=== PATIENT | female | born 1955 | race Caucasian/White ===

== ENCOUNTER 2016-08-05 18:41 | Observation (INO) | payer BC ==
--- NOTE | 2016-08-05 18:53 | ED ---
General Adult HPI - General Chief complaint: Chest Pain Stated complaint: NUMBNESS LEFT ARM, CHEST TIGHTNESS, INDIGESTION Time Seen by Provider: 08/05/16 18:48 Source: patient, RN notes reviewed, old records reviewed Mode of arrival: wheelchair Limitations: no limitations - History of Present Illness Initial comments: This is a 7-year-old female the ER for evaluation of chest pain. Left-sided chest pain with tingling and numbness down left arm. Patient has history of high cholesterol and diabetes, remote history of smoking no high cholesterol no prior history of heart disease. No shortness of breath no diaphoresis no cough or congestion, no recent travel history no sick contacts. No modifying factors for symptoms, symptoms about an hour prior to arrival - Related Data Home Medications Medication Instructions Recorded Confirmed Naproxen Sodium [Aleve] 220 mg PO BID 09/30/14 08/05/16 Omeprazole [PriLOSEC] 20 mg PO BID 09/30/14 08/05/16 Oxybutynin Chloride 5 mg PO TID 09/30/14 08/05/16 Simvastatin [Zocor] 40 mg PO HS 09/30/14 08/05/16 glyBURIDE [Diabeta] 5 mg PO AC-SUPPER 09/30/14 08/05/16 Aspirin EC [Ecotrin Low Dose] 81 mg PO DAILY 08/05/16 08/05/16 Lisinopril [Zestril] 2.5 mg PO DAILY 08/05/16 08/05/16 Allergies Allergy/AdvReac Type Severity Reaction Status Date / Time codeine AdvReac Nausea & Verified 08/05/16 19:32 Vomiting Review of Systems ROS Statement: Those systems with pertinent positive or pertinent negative responses have been documented in the HPI. ROS Other: All systems not noted in ROS Statement are negative. Past Medical History Past Medical History: Diabetes Mellitus, Hyperlipidemia, Osteoarthritis (OA), Sleep Apnea/CPAP/BIPAP Additional Past Medical History / Comment(s): urinary urgency, menieres disease History of Any Multi-Drug Resistant Organisms: None Reported Past Surgical History: Cholecystectomy, Hernia Repair, Orthopedic Surgery, Tubal Ligation Additional Past Surgical History / Comment(s): hiatal hernia repair, rt shoulder rotator cuff, left foot surgery, angel luis knee arthroscopy Past Anesthesia/Blood Transfusion Reactions: Previous Problems w/ Anesthesia, Motion Sickness Additional Past Anesthesia/Blood Transfusion Reaction / Comment(s): "hard time coming out" Past Psychological History: No Psychological Hx Reported Smoking Status: Former smoker Past Alcohol Use History: None Reported Past Drug Use History: None Reported - Past Family History Mother Family Medical History: No Reported History General Exam Limitations: no limitations General appearance: alert, in no apparent distress Head exam: Present: atraumatic, normocephalic, normal inspection Eye exam: Present: normal appearance, PERRL, EOMI. Absent: scleral icterus, conjunctival injection, periorbital swelling ENT exam: Present: normal exam, mucous membranes moist Neck exam: Present: normal inspection. Absent: tenderness, meningismus, lymphadenopathy Respiratory exam: Present: normal lung sounds bilaterally. Absent: respiratory distress, wheezes, rales, rhonchi, stridor Cardiovascular Exam: Present: regular rate, normal rhythm, normal heart sounds. Absent: systolic murmur, diastolic murmur, rubs, gallop, clicks GI/Abdominal exam: Present: soft, normal bowel sounds. Absent: distended, tenderness, guarding, rebound, rigid Extremities exam: Present: normal inspection, full ROM, normal capillary refill. Absent: tenderness, pedal edema, joint swelling, calf tenderness Back exam: Present: normal inspection Neurological exam: Present: alert, oriented X3, CN II-XII intact Psychiatric exam: Present: normal affect, normal mood Skin exam: Present: warm, dry, intact, normal color. Absent: rash Course Vital Signs 08/05/16 08/05/16 18:43 20:00 Temperature 98.3 F Pulse Rate 76 66 Respiratory 18 18 Rate Blood Pressure 149/67 138/69 O2 Sat by Pulse 97 98 Oximetry - Reevaluation(s) Reevaluation #1: 08/05/16 20:43 Patient still with chest pain although it is improved EKG Findings - EKG Comments: EKG Findings:: EKG shows normal sinus rhythm rate 73, ID 132, QRS 70, QTc 460 Medical Decision Making - Medical Decision Making 61 female the ER for evaluation of chest pain, positive cardiac risk factors. No recent cardiac evaluation. Initial EKG just for negative, patient will be admitted to cardiac observation, serial troponin - Lab Data Result diagrams: 08/05/16 19:15 08/05/16 19:15 Lab Results 02/17/17 02/17/17 02/17/17 Range/Units 19:15 19:15 19:15 WBC 8.3 (3.8-10.6) k/uL RBC 4.29 (3.80-5.40) m/uL Hgb 13.5 (11.4-16.0) gm/dL Hct 39.7 (34.0-46.0) % MCV 92.6 (80.0-100.0) fL MCH 31.5 (25.0-35.0) pg MCHC 34.1 (31.0-37.0) g/dL RDW 12.5 (11.5-15.5) % Plt Count 287 (150-450) k/uL Neutrophils % 55 % Lymphocytes % 29 % Monocytes % 6 % Eosinophils % 6 % Basophils % 1 % Neutrophils # 4.6 (1.3-7.7) k/uL Lymphocytes # 2.4 (1.0-4.8) k/uL Monocytes # 0.5 (0-1.0) k/uL Eosinophils # 0.5 (0-0.7) k/uL Basophils # 0.1 (0-0.2) k/uL PT (9.0-12.0) sec INR (<1.1) APTT (22.0-30.0) sec Sodium 142 (137-145) mmol/L Potassium 3.9 (3.5-5.1) mmol/L Chloride 103 (98-107) mmol/L Carbon Dioxide 29 (22-30) mmol/L Anion Gap 10 mmol/L BUN 16 (7-17) mg/dL Creatinine 0.65 (0.52-1.04) mg/dL Est GFR (MDRD) Af Amer >60 (>60 ml/min/1.73 sqM) Est GFR (MDRD) Non-Af >60 (>60 ml/min/1.73 sqM) Glucose 146 H (74-99) mg/dL Calcium 9.3 (8.4-10.2) mg/dL Magnesium 1.9 (1.6-2.3) mg/dL Total Bilirubin 0.6 (0.2-1.3) mg/dL AST 20 (14-36) U/L ALT 33 (9-52) U/L Alkaline Phosphatase 100 (38-126) U/L Total Creatine Kinase 82 (30-135) U/L CK-MB (CK-2) 1.1 (0.0-2.4) ng/mL CK-MB (CK-2) Rel Index 1.3 Troponin I <0.012 (0.000-0.034) ng/mL Total Protein 6.9 (6.3-8.2) g/dL Albumin 3.6 (3.5-5.0) g/dL Lipase 44 (23-300) U/L 08/05/16 Range/Units 19:15 WBC (3.8-10.6) k/uL RBC (3.80-5.40) m/uL Hgb (11.4-16.0) gm/dL Hct (34.0-46.0) % MCV (80.0-100.0) fL MCH (25.0-35.0) pg MCHC (31.0-37.0) g/dL RDW (11.5-15.5) % Plt Count (150-450) k/uL Neutrophils % % Lymphocytes % % Monocytes % % Eosinophils % % Basophils % % Neutrophils # (1.3-7.7) k/uL Lymphocytes # (1.0-4.8) k/uL Monocytes # (0-1.0) k/uL Eosinophils # (0-0.7) k/uL Basophils # (0-0.2) k/uL PT 10.1 (9.0-12.0) sec INR 1.0 (<1.1) APTT 22.6 (22.0-30.0) sec Sodium (137-145) mmol/L Potassium (3.5-5.1) mmol/L Chloride (98-107) mmol/L Carbon Dioxide (22-30) mmol/L Anion Gap mmol/L BUN (7-17) mg/dL Creatinine (0.52-1.04) mg/dL Est GFR (MDRD) Af Amer (>60 ml/min/1.73 sqM) Est GFR (MDRD) Non-Af (>60 ml/min/1.73 sqM) Glucose (74-99) mg/dL Calcium (8.4-10.2) mg/dL Magnesium (1.6-2.3) mg/dL Total Bilirubin (0.2-1.3) mg/dL AST (14-36) U/L ALT (9-52) U/L Alkaline Phosphatase (38-126) U/L Total Creatine Kinase (30-135) U/L CK-MB (CK-2) (0.0-2.4) ng/mL CK-MB (CK-2) Rel Index Troponin I (0.000-0.034) ng/mL Total Protein (6.3-8.2) g/dL Albumin (3.5-5.0) g/dL Lipase (23-300) U/L - Radiology Data Radiology results: report reviewed (Chest x-ray negative for acute disease), image reviewed Critical Care Time Critical Care Time: Yes Total Critical Care Time: 31 Disposition Clinical Impression: Chest pain Disposition: ADMITTED IP TO THIS [facility] Condition: Good Instructions: Chest Pain (ED) Referrals: Young Vu DO [Primary Care Provider] - 1-2 days
[2016-08-05 19:24] LABS: Basophils # (A) 0.1 k/uL (0-0.2); Basophils % (A) 1 %; CH 31.8; CHCM 34.5; Eosinophils # (A) 0.5 k/uL (0-0.7); Eosinophils % (A) 6 %; HCT 39.7 % (34.0-46.0); HDW 2.55; HGB 13.5 gm/dL (11.4-16.0); Luc # (Auto) 0.29; Luc % (Auto) 4; Lymphocytes # (A) 2.4 k/uL (1.0-4.8); Lymphocytes % (A) 29 %; MCH 31.5 pg (25.0-35.0); MCHC 34.1 g/dL (31.0-37.0); MCV 92.6 fL (80.0-100.0); Mean Platelet Volume 7.8; Monocytes # (A) 0.5 k/uL (0-1.0); Monocytes % (A) 6 %; Neutrophils # (A) 4.6 k/uL (1.3-7.7); Neutrophils % (A) 55 %; RBC 4.29 m/uL (3.80-5.40); RDW 12.5 % (11.5-15.5); WBC 8.3 k/uL (3.8-10.6); WBC (Perox) 8.23
--- NOTE | 2016-08-05 19:32 | XR ---
EXAMINATION TYPE: XR chest 2V DATE OF EXAM: 08/05/2016 7:25 PM COMPARISON: NONE HISTORY: Chest pain TECHNIQUE: Frontal and lateral views of the chest are obtained. FINDINGS: There is no heart failure nor confluent pneumonic infiltrate. Costophrenic angles are clovis r. There are no hilar masses. There are chest leads. Mediastinum is normal. Bony thorax is intact. IMPRESSION: No active cardiopulmonary disease.
[2016-08-05 19:40] LABS: Partial Thromboplastin Time 22.6 sec (22.0-30.0); Prothrombin Time 10.1 sec (9.0-12.0)
[2016-08-05 19:44] LABS: Creatine Kinase 82 U/L (30-135)
[2016-08-05 19:57] LABS: Creatine Kinase MB 1.1 ng/mL (0.0-2.4); Troponin I <0.012 ng/mL (0.000-0.034)
[2016-08-05 20:27] LABS: ALT 33 U/L (9-52); AST 20 U/L (14-36); Alkaline Phosphatase 100 U/L (38-126); Anion Gap 10 mmol/L; Blood Urea Nitrogen 16 mg/dL (7-17); Calcium 9.3 mg/dL (8.4-10.2); Carbon Dioxide 29 mmol/L (22-30); Chloride 103 mmol/L (98-107); Glucose 146 mg/dL (74-99); Magnesium 1.9 mg/dL (1.6-2.3); Non-African American GFR(MDRD) >60 (>60 ml/min/1.73 sqM); Potassium 3.9 mmol/L (3.5-5.1); Sodium 142 mmol/L (137-145); Total Bilirubin 0.6 mg/dL (0.2-1.3); Total Protein 6.9 g/dL (6.3-8.2)
[2016-08-05] MEDS ORDERED: NITROGLYCERIN SL TABS 0.4 MG TAB SUBLINGUAL PRN (20:39)
[2016-08-05] MEDS ORDERED: MORPHINE SULFATE 4 MG/ML SYRINGE IV PRN (20:39)
[2016-08-05] MEDS ORDERED: HEPARIN SODIUM,PORCINE 5,000 UNIT/ML 1 ML VIAL IV ONE (20:39)
[2016-08-05] MEDS ORDERED: ASPIRIN 81 MG CHEW PO STA (20:39)
[2016-08-05] MEDS ORDERED: HEPARIN SODIUM,PORCINE/D5W PMX 25,000 UNIT in DEXTROSE/WATER 1 500ML.BAG IV SCH (20:45)
[2016-08-05 22:15] VITALS: BMI 37.9
[2016-08-05] MEDS ORDERED: HYDROcodone/APAP 5-325MG 1 EACH TAB PO PRN (23:19)
[2016-08-05] MEDS ORDERED: ATORVASTATIN 20 MG TAB PO SCH (23:30)
[2016-08-05] MEDS: LISINOPRIL 2.5 MG TAB PO SCH (23:44)
[2016-08-05] MEDS: OXYBUTYNIN CHLORIDE 5 MG TAB PO SCH (23:44)
[2016-08-05] MEDS: glipiZIDE 5 MG TAB PO SCH (23:44)
[2016-08-05] MEDS: PANTOPRAZOLE 40 MG TABLET PO SCH (23:44)
[2016-08-06 02:38] LABS: Mean Platelet Volume 7.2
[2016-08-06 02:58] LABS: Creatine Kinase 66 U/L (30-135)
[2016-08-06 02:59] LABS: Cholesterol 154 mg/dL (<200); HDL Cholesterol 51 mg/dL (40-60); Triglycerides 157 mg/dL (<150)
[2016-08-06 03:11] LABS: Creatine Kinase MB 0.7 ng/mL (0.0-2.4); Troponin I <0.012 ng/mL (0.000-0.034)
[2016-08-06 06:52] LABS: Glucose,Whole Blood 100 mg/dL (75-99)
[2016-08-06 07:52] LABS: Creatine Kinase 105 U/L (30-135)
[2016-08-06 08:05] LABS: Creatine Kinase MB 0.8 ng/mL (0.0-2.4); Troponin I <0.012 ng/mL (0.000-0.034)
[2016-08-06] MEDS ORDERED: ASPIRIN 325 MG TAB PO SCH (09:00)
[2016-08-06] MEDS ORDERED: ATORVASTATIN 80 MG TAB PO STA (09:15)
[2016-08-06] MEDS ORDERED: ASPIRIN 325 MG TAB PO STA (09:15)
[2016-08-06] MEDS ORDERED: ALPRAZolam 0.5 MG TAB PO PRN (09:15)
[2016-08-06] MEDS ORDERED: SODIUM CHLORIDE 0.9% 1,000 ML in EMPTY BAG 1 BAG IV ONE (09:15)
[2016-08-06] MEDS ORDERED: NITROGLYCERIN SL TABS 0.4 MG TAB SUBLINGUAL PRN (09:15)
[2016-08-06] MEDS ORDERED: ALPRAZolam 0.25 MG TAB PO PRN (09:15)
--- NOTE | 2016-08-06 09:24 | CONS ---
DATE OF CONSULTATION: This is a 61-year-old lady with a known history of type 2 diabetes mellitus, hypercholesterolemia and obesity, and past history of smoking more than 20 years ago. She presented to the emergency room with complaints of heaviness and pressure in the chest with radiation to left upper extremity and some tingling sensation. The discomfort lasted more than 20 minutes and occurred at rest after she had a meal. However, she felt concerned and came into the hospital. Troponins are normal. EKG revealed sinus rhythm, sinus bradycardia and minor nonspecific ST-T changes with T wave abnormality, which is also nonspecific. She had another episode of discomfort while she was here as well, but she is comfortable now. I will increase her activity and see how she does. If she has any pressure in the chest with activity, I will perform a coronary angiography. She has had a stress test more than 5 years ago, details unavailable. At the time of my evaluation, she is resting in the bed. PAST MEDICAL HISTORY: Type 2 diabetes, hyperlipidemia, osteoarthritis, sleep apnea syndrome uses a CPAP. She is status post cholecystectomy, hernia repair and arthroscopic surgery of her knees and tubal ligation. Medications at home include naproxen, omeprazole, simvastatin, glyburide, aspirin, lisinopril 2.5 mg daily. ALLERGIES: CODEINE. REVIEW OF SYSTEMS: Unremarkable for any hematemesis or melena, genitourinary symptoms, fever with chills, or cough with expectoration. On examination, blood pressure is 118/70, pulse rate is 62 per minute, regular. HEENT: Unremarkable. Fundus was not examined by me. Neck is supple. No JVD. I do not hear a carotid bruit. Heart exam reveals S1 and S2 heard normally, but distantly. Lungs are clear. Abdomen is soft, nontender. Lower extremities reveal normal pulses. No edema. Central nervous system is normal. EKG revealed sinus mechanism, nonspecific T wave abnormality. Laboratory data revealed unremarkable troponins. IMPRESSION: 1. Chest pain syndrome, cannot exclude angina symptoms of chest pressure in a patient with significant risk factors. 2. Type 2 diabetes mellitus. 3. Hypercholesterolemia. 4. Obesity. 5. Sleep apnea syndrome, wears a CPAP. RECOMMENDATIONS: I am recommending that we increase activity and see how she does. If she has any chest pressure or heaviness, I would recommend cardiac catheterization. Risks, benefits, options and rationale were discussed at length with the patient. She understands all details and wishes to proceed with the procedure.
[2016-08-06] MEDS: OXYBUTYNIN CHLORIDE 5 MG TAB PO SCH ×3 (10:14→20:26)
[2016-08-06] MEDS: PANTOPRAZOLE 40 MG TABLET PO SCH ×2 (10:26→20:25)
[2016-08-06 11:02] LABS: Hemoglobin A1C 6.7 % (4.2-6.1)
[2016-08-06 12:03] LABS: Glucose,Whole Blood 102 mg/dL (75-99)
[2016-08-06] MEDS ORDERED: SODIUM CHLORIDE 0.9% (PF) 10 ML VIAL ONE (12:49)
[2016-08-06] MEDS ORDERED: VERAPAMIL 2.5 MG/ML 2 ML AMP ONE (12:49)
[2016-08-06] MEDS ORDERED: diphenhydrAMINE 50 MG/ML 1 ML VIAL ONE (12:50)
[2016-08-06] MEDS ORDERED: LIDOCAINE 2% INJ 20 MG/ML (20 ML MDV) ONE (12:50)
[2016-08-06] MEDS ORDERED: HEPARIN SODIUM 1,000 UNIT/ML VIAL ONE (12:50)
[2016-08-06] MEDS ORDERED: MIDAZOLAM 2 MG/2 ML VIAL ONE (12:50)
[2016-08-06] MEDS ORDERED: MIDAZOLAM 2 MG/2 ML VIAL IV ONE ×2 (13:04)
[2016-08-06] MEDS ORDERED: diphenhydrAMINE 50 MG/ML 1 ML VIAL IVP ONE (13:04)
[2016-08-06] MEDS ORDERED: LIDOCAINE 2% INJ 20 MG/ML SQ ONE (13:06)
[2016-08-06] MEDS: VERAPAMIL SYRINGE (5 MG/10 ML) INTRAARTER ONE ×2 (13:09→13:33)
[2016-08-06] MEDS ORDERED: fentaNYL (PF) 50 MCG/ML 2 ML AMP ONE (13:11)
[2016-08-06] MEDS ORDERED: fentaNYL (PF) 50 MCG/ML 2 ML AMP IV ONE (13:11)
[2016-08-06] MEDS ORDERED: IOHEXOL 350 MG/ML 100 ML BOTTLE INTRATHECA ONE (13:33)
[2016-08-06] MEDS ORDERED: IV FLUID CONTINUATION 900 ML IV ONE (13:34)
[2016-08-06] MEDS ORDERED: RX INFO: IV CONTRAST WAS GIVEN 1 EACH MISC MISCELLANE PRN (13:51)
[2016-08-06] MEDS ORDERED: SODIUM CHLORIDE 0.9% 1,000 ML IV SCH (14:00)
--- NOTE | 2016-08-06 14:55 | ECHOF ---
Referral Reason:CP MEASUREMENTS -------- HEIGHT: 165.1 cm WEIGHT: 106.1 kg BP: RVIDd: 2.6 cm (< 3.3) IVSd: 1.3 cm (0.6 - 1.1) LVIDd: 4.6 cm (3.9 - 5.3) LVPWd: 1.1 cm (0.6 - 1.1) IVSs: 1.4 cm LVIDs: 4.4 cm LVPWs: 1.2 cm LA Diam: 4.1 cm (2.7 - 3.8) Ao Diam: 2.6 cm (2.0 - 3.7) AV Cusp: 2.0 cm (1.5 - 2.6) LA Diam: 4.6 cm (2.7 - 3.8) MV EXCURSION: 19.436 mm (> 18.000) MV EF SLOPE: 102 mm/s (70 - 150) EPSS: 0.9 cm MV E Tree: 0.64 m/s MV DecT: 236 ms MV A Tree: 0.78 m/s MV E/A Ratio: 0.82 RAP: 5.00 mmHg RVSP: 33.58 mmHg FINDINGS -------- Sinus rhythm. This was a technically adequate study. There is mild concentric left ventricular hypertrophy. Overall left ventricular systolic function is normal with, an EF between 55 - 60 %. The right ventricle is normal in size. The right atrial size is normal. There is mild aortic valve sclerosis. There is no evidence of aortic regurgitation. Mild mitral annular calcification present. Mild mitral regurgitation is present. Mild tricuspid regurgitation present. There is no evidence of pulmonary hypertension. The right ventricular systolic pressure, as measured by Doppler, is 33.58mmHg. There is no pulmonic regurgitation present. The aortic root size is normal. There is no pericardial effusion. CONCLUSIONS -------- 1. There is mild concentric left ventricular hypertrophy. 2. Overall left ventricular systolic function is normal with, an EF between 55 - 60 %. 3. There is mild aortic valve sclerosis. 4. Mild mitral annular calcification present. 5. Mild mitral regurgitation is present. 6. Mild tricuspid regurgitation present. 7. There is no evidence of pulmonary hypertension. 8. The right ventricular systolic pressure, as measured by Doppler, is 33.58mmHg. POULTRY CLEANER: Luz Edward RDCS
[2016-08-06 17:26] LABS: Glucose,Whole Blood 182 mg/dL (75-99)
[2016-08-06] MEDS: glipiZIDE 5 MG TAB PO SCH (17:34)
--- NOTE | 2016-08-06 18:57 | HP ---
CHIEF COMPLAINT: Chest pain. HISTORY OF PRESENT ILLNESS: Ms. Husain is a 61-year-old female with known history of diabetes mellitus, [id number]; morbid obesity, hyperlipidemia, history of smoking, quit 20 years ago, came to the hospital with complaints of chest pain, midsternal, which is radiating down the left arm with numbness and tingling sensation in the left arm. Patient's pain lasted about 2 hours until she came to the ER. Patient did have troponin and EKG. EKG showed sinus rhythm and sinus bradycardia, nonspecific ST-T wave changes. Patient does not have any history of coronary artery disease dizziness in the past. Denied any exertional chest pain or short of breath. Patient was sitting on a chair when she had this pain. Denied any recent illnesses. No unusual food intake. Patient had a stress test done about 5 years ago, details unavailable. Cardiology has seen the patient and underwent cardiac catheterization today. Otherwise, patient is currently chest pain free. REVIEW OF SYSTEMS: CONSTITUTIONAL: No fever. No chills. No weakness, malaise. RESPIRATORY: No cough or sputum production. CARDIOVASCULAR: No chest pain. No short of breath. No leg swelling. ABDOMEN: No nausea, vomiting, abdominal pain. GENITOURINARY: Negative. ENDOCRINE: Negative. PSYCHIATRY: Negative. SKIN: Negative. All other 14-point review of systems negative as above. Past medical history includes type 2 diabetes mellitus, [id number]; morbid obesity with BMI of 37.9, hyperlipidemia, osteoarthritis, obstructive sleep apnea on CPAP, urinary urgency and M?ni?re's disease. PAST SURGICAL HISTORY: Cholecystectomy, hernia repair, orthopedic surgery, tubal ligation. No psychosocial history. SOCIAL HISTORY: Patient is a former smoker, quit 20 years. Denied alcohol use. Denied any drugs or IVDU. FAMILY HISTORY: Mother had coronary artery disease at the age of 65. ALLERGIES TO CODEINE. Home medication include: 1. Naprosyn. 2. Prilosec. 3. Oxybutynin. 4. Simvastatin. 5. Glyburide. 6. Aspirin. 7. Lisinopril. PHYSICAL EXAMINATION: A 61-year-old female sitting in a chair comfortably; awake, alert, oriented x3. The patient is in no apparent distress. VITALS: Blood pressure is 129/59, pulse is 92, respirations 18, temperature afebrile, pulse ox 99% on room air. HEENT: Atraumatic, normocephalic. Neck is supple. No JVD. CVS: S1, S2 heard. No murmurs, rub or gallop. LUNGS: Bilateral air entry is present. No wheezing. No crackles. ABDOMEN: Soft, nontender, obese. Bowel sounds are present. [employer] INTEGRATION SENIOR MANAGER: Awake, alert, oriented x3. No focal deficit. EXTREMITIES: No edema. Pulses palpable bilaterally. No clubbing or cyanosis. PSYCHIATRIC: Cooperative. LABORATORY DATA: WBC 8.3, hemoglobin 13.4, platelets 287, INR 1.0. Sodium 142, potassium 3.9, chloride 103, bicarb is 29, BUN 16, creatinine 0.65. HbA1c is 6.7. Liver enzymes are normal. Serial troponins are negative and LDL is 72. Lipase 44. BNP is 304. EKG showed a sinus bradycardia and sinus rhythm. Chest x-ray: No active cardiopulmonary process. Echocardiogram showed mild concentric left ventricular hypertrophy. Ejection fraction is 55% to 60%, mild mitral regurgitation and tricuspid regurgitation. No evidence of pulmonary hypertension. ASSESSMENT AND PLAN: 1. Atypical chest pain in a patient with multiple risk factors. Will rule out acute coronary syndrome. Serial EKGs and troponins are negative. Cardiology is planning for cardiac catheterization. 2. Diabetes type 2. She is [id number]. HbA1c is 6.7. 3. Morbid obesity with a body mass index of 37.9. 4. Hyperlipidemia. 5. Obstructive sleep apnea on continuous positive airway pressure at home. 6. Degenerative joint disease. 7. Deep venous thrombosis prophylaxis. 8. Urinary urgency. 9. History of M?ni?re's disease. DISCUSSION AND PLAN: Patient will be continued on tele monitoring, serial EKGs and troponins. Cardiac workup has been negative so far. Will follow up on cath report. Two-D echo shows normal ejection fraction and no wall motion abnormalities. No pulmonary hypertension. Will continue the home medications and hold Naprosyn at this time and follow up closely. Further recommendations based on the clinical course. Cardiology is on board.
[2016-08-06 19:48] VITALS: BP 110/61; PULSE 68; RESP 18; TEMP 97.7
[2016-08-06] MEDS: LISINOPRIL 2.5 MG TAB PO SCH (20:25)
--- NOTE | 2016-08-07 08:20 | CC ---
DATE OF SERVICE: 08/06/2016 PROCEDURE: Left heart catheterization, coronary angiography and left ventriculography. PERFORMED BY: Dr. Makenzie Quinn. CLINICAL INFORMATION: Mrs. Leanna Husain is a 61-year-old lady with history of obesity, type 2 diabetes, hypertension, and hypercholesterolemia, who came to the hospital with complaints of chest pressure suggestive of angina. I did not have any troponin elevation, but continued to have recurrent discomfort in the chest with equivocal EKG changes. She was advised coronary angiography given her presentation and symptomatology. Risks, benefits, options and rationale were discussed with the patient. PROCEDURE NOTE: Under local anesthesia and strict aseptic precautions, a 6 [place] introducer was placed in the right radial artery. Initially I used an Ultima catheter but I had difficulty getting coronary axis and therefore I switched over to 5 [place]er 3.5, left and right Tee catheters. With this I performed coronary angiography and a pigtail catheter was used to perform left ventriculography. The catheter and sheath was taken out and TR band applied as per protocol and she was sent to the room in stable condition. Results were discussed with the patient and family. CARDIAC CATHETERIZATION FINDINGS: The left ventricle end-diastolic pressure was 12 mmHg without any gradient across the aortic valve. CORONARY ANGIOGRAPHY FINDINGS: RIGHT CORONARY ARTERY: This is a very dominant vessel, free of significant disease, distally bifurcates into a PDA and PLV. The PLV is the larger. It gives off another secondary branch and all 3 branches supply a sizable amount of myocardium. Right coronary artery is a dominant, disease-free vessel with minor irregularities. LEFT MAIN CORONARY ARTERY: This is a long vessel, free of significant disease that bifurcates into LAD and circumflex. LEFT ANTERIOR DESCENDING CORONARY ARTERY: Good caliber vessel extends along the anterior wall, gives off a diagonal branch and LAD runs all the way to the apex, curves over the apex, and supplies the inferoapical portion of the left ventricle. The entire LAD system has minor irregularities. No significant obstructive disease. LEFT POSTERIOR CIRCUMFLEX CORONARY ARTERY: Technically, a nondominant vessel; gives off a large single obtuse marginal. A small branch runs in the AV groove. The entire circumflex system has minor irregularities. No significant obstructive disease. LEFT VENTRICULOGRAM: This was performed in 30 degree RODRIGUEZ projection and revealed left ventricle that is of normal size with good systolic function without segmental wall motion abnormality, ejection fraction of 65% without mitral regurgitation. FINAL IMPRESSION: This patient has a right dominant system, normal filling pressures, normal systolic function, ejection fraction of 65%. RECOMMENDATIONS: Findings were discussed with the patient and her . She does not have any significant obstructive coronary artery disease. Chest pain is probably a noncardiac pain. She will be discharged later on today if she remains stable, and I will see her on Monday in the office.
--- NOTE | 2016-08-07 08:22 | LTR ---
August 06, 2016 RE: LisahLeanna Dear Dr. Vu: Thank you for the opportunity to participate in the care of Mrs. Husain. I am pleased to report to you that she does not have any significant obstructive coronary artery disease. We will pursue continued medical therapy with risk factor modification. She can be discharged later on today. Thank you for your referral. Please call for questions. Sincerely, ORLANDO HARRIS MD
[2016-08-07] MEDS ORDERED: ATORVASTATIN 20 MG TAB PO SCH (17:30)
--- NOTE | 2016-08-08 09:43 | DS ---
DATE OF ADMISSION: 08/05/2016 DATE OF DISCHARGE: 08/06/2016 DISCHARGE DIAGNOSIS(ES): 1. Atypical chest pain with history of multiple risk factors, rule out acute coronary syndrome and status post cardiac catheterization which is nonobstructive. 2. Type 2 diabetes mellitus, noninsulin dependent HbA1C ( ). 3. Morbid obesity, body mass index 37.9. 4. Hyperlipidemia. 5. Obstructive sleep apnea on CPAP at home. 6. Degenerative joint disease. 7. Deep venous thrombosis prophylaxis. 8. Urinary urgency. 9. History of Meniere's disease. HOSPITAL COURSE: Ms. Husain is a 61 -year-old female with the above medical problems and risk factors for coronary artery disease, admitted to the hospital with complaints of left sided chest pain radiating down the left arm with numbness and tingling sensation in the left arm, lasted about two hours. The patient was seen by cardiology and the patient was telemonitored and serial EKGs and troponins were negative due to above risk factors and the patient decided to have cardiac catheterization done while in the hospital which was done and as per the report, which was nonobstructive. The patient is chest pain free now. The patient will be discharged home and follow-up with primary care physician and cardiology as an outpatient. DISCHARGE PHYSICAL EXAMINATION: A 61 -year-old female lying in bed comfortable, alert and oriented times three. Appears in no apparent distress. Vital signs revealed blood pressure 110/61. Pulse 68. Respiratory rate 18. Temperature afebrile. Pulse ox 97% on room air. Laboratory data reviewed. Total cholesterol 154, LDL 72. Troponin times three is negative. HbA1C 6.7. Discharge physical examination: HEENT: Atraumatic, normocephalic. Neck is supple. No Jugular venous distention. CARDIOVASCULAR: S1, S2 heard. No murmurs. No gallops. No rub. Lungs bilateral air entry is present. No wheeze or crackles. Abdomen is soft. Nontender. Obese. Bowel sounds present. CENTRAL NERVOUS SYSTEM: Awake, alert and oriented times three. No focal deficits. EXTREMITIES: No edema. Pulses palpable bilaterally. No clubbing or cyanosis. Psychiatry: Cooperative. Laboratory data reviewed. DISCHARGE MEDICATIONS: 1. Omeprazole 20 mg p.o. b.i.d. 2. Oxybutynin 5 mg p.o. t.i.d. 3. Glyburide 5 mg p.o. a.c. supper. 4. Aspirin 81 mg p.o. supper. 5. Lisinopril 2.5 mg a.c. supper. 6. Atorvastatin ( ) a.c. supper. 7. Motrin has been discontinued. Follow-up with Dr. Young Vu in one to two days. Follow-up with Dr. Alanna Quinn on 08/08/2016 at 10:00 a.m. Home with self-care. Heart healthy diet. Diabetic diet ( ).
== END 2016-08-06 21:23 | disposition home or self-care (01) ==
LOC: EC 18:41 → 3OBS 20:42
PROVIDERS: ADMIT Family Medicine; ATTEND Family Medicine
DX: R07.89 Other chest pain (principal); E11.9 Type 2 diabetes mellitus without complications; E78.00 Pure hypercholesterolemia, unspecified; E66.01 Morbid (severe) obesity due to excess calories; Z68.37 Body mass index [BMI] 37.0-37.9, adult; G47.33 Obstructive sleep apnea (adult) (pediatric); Z99.89 Dependence on other enabling machines and devices; R39.15 Urgency of urination; H81.09 Meniere's disease, unspecified ear; R20.2 Paresthesia of skin; R20.0 Anesthesia of skin; M19.90 Unspecified osteoarthritis, unspecified site; E78.5 Hyperlipidemia, unspecified; Z87.891 Personal history of nicotine dependence; Z79.899 Other long term (current) drug therapy; Z79.82 Long term (current) use of aspirin; Z79.84 Long term (current) use of oral hypoglycemic drugs; Z79.1 Long term (current) use of non-steroidal anti-inflammatories (NSAID); Z88.5 Allergy status to narcotic agent; Z82.49 Family history of ischemic heart disease and other diseases of the circulatory system
CPT/HCPCS: 96365; 99291; 96376; 36415; 94760; 93005; 93306; 93458; 83880; 80061; 80053; 83036; 82550 ×2; 82553 ×2; 83690; 83735; 84484 ×2; 85025; 85049; 85610; 85730 ×2; 71020; G0378 ×2; C1769; C1887; C1894; J2001; J2250; J1200; J1644 ×3; Q9967; J3010; 96366

== ENCOUNTER 2016-09-27 11:32 | Day surgery (SDC) | payer BC ==
[2016-09-26 15:02] VITALS: BMI 37.1
[~2016-09-27 11:32] MED LIST: LACTATED RINGERS 1,000 ML IV SCH; LIDOCAINE 1% 20 ML VIAL (10MG/ML) FOR IV START INTRADERMA PRN
[2016-09-27 12:12] VITALS: TEMP 97.8
[2016-09-27] MEDS ORDERED: LIDOCAINE 1% INJ 10MG/ML (20 ML MDV) ONE (12:13)
[2016-09-27] MEDS ORDERED: MIDAZOLAM 2 MG/2 ML VIAL ONE (12:13)
[2016-09-27] MEDS ORDERED: PROPOFOL 10 MG/ML 20 ML VIAL IV ONE (12:13)
--- NOTE | 2016-09-27 12:16 | P.GSHP ---
History of Present Illness H&P Date: 09/27/16 Chief Complaint: GERD, dysphagia This a 7-year-old female who presents today for EGD. She's had issues with GERD and dysphagia. - Constitutional Constitutional: Reports as per HPI Past Medical History Past Medical History: Diabetes Mellitus, Hyperlipidemia, Osteoarthritis (OA), Sleep Apnea/CPAP/BIPAP Additional Past Medical History / Comment(s): having chest pain intermittently, currently tx of yeast infection skin folds,urinary urgency, menieres disease, uses cpap intermittently History of Any Multi-Drug Resistant Organisms: None Reported Past Surgical History: Cholecystectomy, Heart Catheterization, Hernia Repair, Orthopedic Surgery, Tubal Ligation Additional Past Surgical History / Comment(s): hiatal hernia repair, rt shoulder rotator cuff, left foot surgery, angel luis knee arthroscopy Past Anesthesia/Blood Transfusion Reactions: Previous Problems w/ Anesthesia, Motion Sickness Additional Past Anesthesia/Blood Transfusion Reaction / Comment(s): "hard time coming out" Past Psychological History: No Psychological Hx Reported Smoking Status: Former smoker Past Alcohol Use History: None Reported Additional Past Alcohol Use History / Comment(s): quit smoking 1999,smoked approx 35yrs <1ppd Past Drug Use History: None Reported - Past Family History Father Family Medical History: Diabetes Mellitus, Hypertension Mother Family Medical History: CVA/TIA, Diabetes Mellitus, Hypertension Additional Family Medical History / Comment(s): triple bypass, mood disorder, brain anurysm Medications and Allergies Home Medications Medication Instructions Recorded Confirmed Type Omeprazole [PriLOSEC] 20 mg PO BID 09/30/14 09/26/16 History Oxybutynin Chloride 5 mg PO BID 09/30/14 09/26/16 History glyBURIDE [Diabeta] 5 mg PO AC-SUPPER 09/30/14 09/26/16 History Aspirin EC [Ecotrin Low Dose] 81 mg PO AC-SUPPER 08/05/16 09/26/16 History Lisinopril [Zestril] 2.5 mg PO AC-SUPPER 08/05/16 09/26/16 History Fluconazole [Diflucan] 150 mg PO Q7D 09/26/16 09/26/16 History Naproxen Sodium [Aleve] 220 mg PO BID PRN 09/26/16 09/26/16 History Simvastatin [Zocor] 40 mg PO HS 09/26/16 09/26/16 History Allergies Allergy/AdvReac Type Severity Reaction Status Date / Time codeine AdvReac Nausea & Verified 09/26/16 14:48 Vomiting Surgical - Exam Vital Signs Temp Pulse Resp BP Pulse Ox 97.8 F 67 18 129/80 97 09/27/16 12:07 09/27/16 12:07 09/27/16 12:07 09/27/16 12:07 09/27/16 12:07 - General well developed, no distress - Eyes PERRL - ENT normal pinna - Neck no masses - Respiratory normal expansion - Cardiovascular Rhythm: regular - Abdomen Abdomen: soft, non tender Assessment and Plan Plan: GERD. We'll perform EGD.
[2016-09-27 12:17] LABS: Glucose,Whole Blood 116 mg/dL (75-99)
--- NOTE | 2016-09-27 12:24 | P.OP ---
Date of Procedure: 09/27/16 Preoperative Diagnosis: GERD Dysphagia Postoperative Diagnosis: Antral gastritis Large hiatal hernia Esophagitis Procedure(s) Performed: EGD Anesthesia: MAC Surgeon: Markus Chen Pathology: other (Antrum, esophagus) Condition: stable Disposition: PACU Description of Procedure: Patient's placed on the endoscopy table in the lateral position. She received IV sedation. The gastroscope some placed oropharynx and passed into the esophagus into the stomach. Scope was then placed through the pylorus. The first and second portion of the duodenum appeared normal. Scope was then brought back and the antrum this. Mildly inflamed. A biopsies performed. The scope was then retroflexed and the remainder of the stomach appeared normal. There was a large hiatal hernia. The GE junction was at 36 cm. The distal esophagus appeared inflamed this area is biopsied. The proximal esophagus appeared normal. Scope was withdrawn from patient.
[2016-09-27 12:28] VITALS: RESP 16
[2016-09-27 12:46] VITALS: BP 151/68; PULSE 69
== END 2016-09-27 13:15 | disposition home or self-care (01) ==
LOC: ORWHC2ENDO 11:32
PROVIDERS: ATTEND Surgery
DX: K29.50 Unspecified chronic gastritis without bleeding (principal); K44.9 Diaphragmatic hernia without obstruction or gangrene; K21.0 Gastro-esophageal reflux disease with esophagitis; E11.9 Type 2 diabetes mellitus without complications; E78.5 Hyperlipidemia, unspecified; I10 Essential (primary) hypertension; I25.10 Atherosclerotic heart disease of native coronary artery without angina pectoris; G47.33 Obstructive sleep apnea (adult) (pediatric); M19.90 Unspecified osteoarthritis, unspecified site; Z79.84 Long term (current) use of oral hypoglycemic drugs; Z79.1 Long term (current) use of non-steroidal anti-inflammatories (NSAID); Z79.82 Long term (current) use of aspirin; Z79.899 Other long term (current) drug therapy; Z87.891 Personal history of nicotine dependence
CPT/HCPCS: 88305; 88342; 43239; J2250; J2001; J2704

== ENCOUNTER → 2016-10-21 | Outpatient (CLI) | payer BC ==
[2016-10-21 17:18] LABS: Basophils # (A) 0.1 k/uL (0-0.2); Basophils % (A) 1 %; CH 31.2; CHCM 33.7; Eosinophils # (A) 0.2 k/uL (0-0.7); Eosinophils % (A) 2 %; HCT 42.3 % (34.0-46.0); HDW 2.43; HGB 13.9 gm/dL (11.4-16.0); Luc # (Auto) 0.27; Luc % (Auto) 3; Lymphocytes # (A) 2.5 k/uL (1.0-4.8); Lymphocytes % (A) 25 %; MCH 30.6 pg (25.0-35.0); MCHC 32.8 g/dL (31.0-37.0); Monocytes # (A) 0.6 k/uL (0-1.0); Monocytes % (A) 5 %; Neutrophils # (A) 6.5 k/uL (1.3-7.7); Neutrophils % (A) 64 %; RBC 4.55 m/uL (3.80-5.40); RDW 12.8 % (11.5-15.5); WBC 10.1 k/uL (3.8-10.6); WBC (Perox) 10.47
== END | disposition home or self-care (01) ==
LOC: LABPAT 16:51
PROVIDERS: ATTEND Anesthesiology
DX: Z01.812 Encounter for preprocedural laboratory examination (principal)
CPT/HCPCS: 85025

== ENCOUNTER 2016-10-25 08:55 | Inpatient (IN) | payer BC ==
[2016-10-20 15:23] VITALS: BMI 37.1
[~2016-10-25 08:55] MED LIST changes: +DEXAMETHASONE SOD PHOSPHATE 10 MG/ML 1 ML VIAL IV ONE; +HEPARIN SODIUM,PORCINE 5,000 UNIT/ML 1 ML VIAL SQ ONE; -LACTATED RINGERS 1,000 ML IV SCH; -LIDOCAINE 1% 20 ML VIAL (10MG/ML) FOR IV START INTRADERMA PRN; +MIDAZOLAM 2 MG/2 ML VIAL IV PRN; +ONDANSETRON 4 MG/2 ML VIAL IVP ONE
[2016-10-25] MEDS: LACTATED RINGERS 1,000 ML IV SCH (09:24)
[2016-10-25 09:31] LABS: Glucose,Whole Blood 129 mg/dL (75-99)
--- NOTE | 2016-10-25 10:05 | P.GSHP ---
History of Present Illness H&P Date: 10/25/16 Chief Complaint: GERD This is a 61-year-old female referred from Dr. Young Vu.The patient has had long-standing problems with reflux esophagitis. The patient underwent recent EGD is found have evidence of esophagitis. Patient has been well informed on the procedure of laparoscopic Manoj fundoplication. The patient is aware the risk of the conversion to the open procedure, risk of injury to the stomach, liver and spleen. The patient is also a risk of recurrent GERD and dysphagia symptoms. The patient understands there is a postoperative diet of full liquids for 2 weeks after surgery. - Constitutional Constitutional: Reports as per HPI Past Medical History Past Medical History: Diabetes Mellitus, GERD/Reflux, Hyperlipidemia, Osteoarthritis (OA), Sleep Apnea/CPAP/BIPAP Additional Past Medical History / Comment(s): C-PAP MACHINE History of Any Multi-Drug Resistant Organisms: None Reported Past Surgical History: Cholecystectomy, Heart Catheterization, Hernia Repair, Orthopedic Surgery, Tubal Ligation Additional Past Surgical History / Comment(s): , rt shoulder rotator cuff, left foot surgery, angel luis knee arthroscopy Past Anesthesia/Blood Transfusion Reactions: Previous Problems w/ Anesthesia, Motion Sickness Additional Past Anesthesia/Blood Transfusion Reaction / Comment(s): " TAKES LONGER WAKING UP Past Psychological History: No Psychological Hx Reported Smoking Status: Former smoker Past Alcohol Use History: None Reported Additional Past Alcohol Use History / Comment(s): STARTED SMOKING AT AGE 17 quit smoking 1999,SMOKED 1PPS Past Drug Use History: None Reported - Past Family History Father Family Medical History: Diabetes Mellitus, Hypertension Mother Family Medical History: CVA/TIA, Diabetes Mellitus, Hypertension Additional Family Medical History / Comment(s): triple bypass, brain anurysm Medications and Allergies Home Medications Medication Instructions Recorded Confirmed Type Omeprazole [PriLOSEC] 20 mg PO BID 09/30/14 10/25/16 History Oxybutynin Chloride 5 mg PO BID 09/30/14 10/25/16 History glyBURIDE [Diabeta] 5 mg PO AC-SUPPER 09/30/14 10/25/16 History Aspirin EC [Ecotrin Low Dose] 81 mg PO AC-SUPPER 08/05/16 10/20/16 History Lisinopril [Zestril] 2.5 mg PO AC-SUPPER 08/05/16 10/25/16 History Naproxen Sodium [Aleve] 220 mg PO BID PRN 09/26/16 10/20/16 History Simvastatin [Zocor] 40 mg PO HS 09/26/16 10/25/16 History Allergies Allergy/AdvReac Type Severity Reaction Status Date / Time codeine AdvReac Nausea & Verified 10/20/16 14:23 Vomiting Surgical - Exam Vital Signs Temp Pulse Resp BP Pulse Ox 98.2 F 87 16 122/84 95 10/25/16 09:23 10/25/16 09:23 10/25/16 09:23 10/25/16 09:23 10/25/16 09:23 - General well developed, no distress - Eyes PERRL - ENT normal pinna - Neck no masses - Respiratory normal expansion - Cardiovascular Rhythm: regular - Abdomen Abdomen: soft, non tender Results - Labs Abnormal Lab Results - Last 24 Hours (Table) 10/25/16 Range/Units 09:29 POC Glucose (mg/dL) 129 H (75-99) mg/dL Assessment and Plan Plan: GERD. We'll perform laparoscopic Manoj fundal plication.
[2016-10-25] MEDS ORDERED: BUPIVACAIN-EPI 0.25%-1:200,000 30 ML VIAL SQ ONE (10:32)
[2016-10-25] MEDS ORDERED: SUCCINYLCHOLINE CHLORIDE 100 MG/5 ML SYR IV ONE (10:35)
[2016-10-25] MEDS ORDERED: PROPOFOL 10 MG/ML 20 ML VIAL IV ONE (10:35)
[2016-10-25] MEDS ORDERED: GLYCOPYRROLATE 0.2 MG/ML 2 ML VIAL ONE (10:35)
[2016-10-25] MEDS ORDERED: NEOSTIGMINE 1 MG/ML 10 ML VIAL ONE (10:35)
[2016-10-25] MEDS ORDERED: ROCURONIUM BROMIDE 10 MG/ML 10 ML VIAL IV ONE (10:35)
[2016-10-25] MEDS ORDERED: fentaNYL (PF) 50 MCG/ML 2 ML AMP ONE (10:35)
[2016-10-25] MEDS ORDERED: MIDAZOLAM 2 MG/2 ML VIAL ONE (10:35)
[2016-10-25] MEDS ORDERED: LIDOCAINE 1% INJ 10MG/ML (20 ML MDV) ONE (10:35)
[2016-10-25] MEDS: ceFAZolin 2 GM in SODIUM CHLORIDE 0.9% 100 ML IVPB ONE ×2 (10:41→11:06)
[2016-10-25] MEDS ORDERED: ONDANSETRON 4 MG/2 ML VIAL IVP PRN (11:31)
[2016-10-25] MEDS ORDERED: NALOXONE 0.4 MG/ML 1 ML VIAL IV PRN (11:31)
[2016-10-25] MEDS ORDERED: traMADol 50 MG TAB PO PRN (11:31)
[2016-10-25] MEDS ORDERED: HYDROmorphone 1 MG/ML 1 ML SYRINGE IVP PRN (11:31)
--- NOTE | 2016-10-25 11:31 | P.OP ---
Date of Procedure: 10/25/16 Preoperative Diagnosis: GERD Postoperative Diagnosis: GERD Procedure(s) Performed: Laparoscopic Manoj fundal plication Anesthesia: RILEY Surgeon: Markus Chen Estimated Blood Loss (ml): 5 Pathology: none sent Condition: stable Disposition: PACU Description of Procedure: The patient was placed on the operating table in the supine position. The patient received general anesthesia. And was placed in dorsal lithotomy position. The patient was prepped and draped in the usual sterile fashion. The skin incision sites were anesthetized with 1% local Xylocaine. The skin was incised in the left periumbilical area and then using a blade less 5 mm trocar under direct visualization panel cavity was entered. After adequate insufflation the laparoscope was then placed into the peritoneal cavity. Next a 5 mm trochars placed in the right epigastric position. Another 5 millimeter trocar the right lateral position. Another 5 millimeter trocar in the left lateral position a 5 mm trocar is placed in the left epigastric position. And then the initial 5 mm trocar was exchanged for a 10 mm trocar. The left lateral lobe liver was retracted. The hernia was seen. The crural defect was then dissected using the Harmonic scissors device. A 360 crural dissection was performed the esophagus stomach was reduced back into the peritoneal Cavity. The crural defect was then closed using 2-0 Ethibond suture. Next the fundus of the stomach was mobilized using the Dunnell scissors device. and then a 58-Romanian bougie dilator was placed oropharynx passed into the esophagus and stomach the fundal plication wrap was then performed by grasping the fundus posteriorly and bringing it around the esophagus and stomach fundoplication was then performed using 2-0 Ethibond suture. Care was taken that the fundal location rested over top of the intra-abdominal esophagus. There was no injury seen to the stomach or esophagus. The dilator was then withdrawn. The abdomen was irrigated there is no bleeding seen. The trochars were then withdrawn and then skin incision sites were closed using 3-0 Monocryl suture Steri-Strips are applied. Patient thought procedure well and sent to recovery room in stable condition.
[2016-10-25] MEDS: HYDROmorphone 1 MG/ML 1 ML SYRINGE IVP PRN ×2 (11:48→11:54)
[2016-10-25] MEDS ORDERED: METOCLOPRAMIDE 5 MG/ML 2 ML VIAL IVP ONE (11:49)
[2016-10-25] MEDS ORDERED: diphenhydrAMINE 50 MG/ML 1 ML VIAL IVP ONE (11:49)
[2016-10-25] MEDS: KETOROLAC 30 MG/ML 1 ML VIAL IVP SCH ×2 (12:05→17:30)
[2016-10-25] MEDS: LACTATED RINGERS 1,000 ML IV ONE ×2 (12:34→13:44)
--- NOTE | 2016-10-25 15:39 | FL ---
Single contrast esophagram EXAMINATION TYPE: FL UGI w esophagus DATE OF EXAM: 10/25/2016 3:32 PM COMPARISON: NONE CLINICAL HISTORY: Status post Capo fundoplication The patient ingested contrast without difficulty or delay. Noted are changes of Capo fundoplicatio n. Small focus of contrast is noted adjacent to the distal esophagus which likely reflects an epiphre jamie diverticulum. Small leak is difficult to exclude however. There is no evidence for obstruction. T ertiary contractions are noted. Small amount of residual contrast within the distal esophagus. IMPRESSION: Post-surgical change of Capo fundoplication without evidence for obstruction. Probabl e epiphrenic diverticulum and less likely small contained leak.
[2016-10-25 16:57] LABS: Glucose,Whole Blood 172 mg/dL (75-99)
[2016-10-25] MEDS: INSULIN LISPRO (humaLOG) 300 UNIT/3 ML VIAL SQ SCH ×2 (17:18→22:07)
[2016-10-25] MEDS: LISINOPRIL 2.5 MG TAB PO SCH ×2 (17:19→17:24)
[2016-10-25 20:01] VITALS: RESP 16
[2016-10-25 20:41] LABS: Glucose,Whole Blood 183 mg/dL (75-99)
[2016-10-25] MEDS ORDERED: ATORVASTATIN 20 MG TAB PO SCH (21:00)
[2016-10-25] MEDS: FAMOTIDINE 20 MG TAB PO SCH (22:07)
[2016-10-25] MEDS: OXYBUTYNIN CHLORIDE 5 MG TAB PO SCH (22:07)
[2016-10-26] MEDS: KETOROLAC 30 MG/ML 1 ML VIAL IVP SCH ×3 (01:01→11:13)
[2016-10-26 01:24] VITALS: PULSE 62
[2016-10-26] MEDS: LACTATED RINGERS 1,000 ML IV SCH (02:55)
[2016-10-26 07:33] LABS: Glucose,Whole Blood 132 mg/dL (75-99)
[2016-10-26 07:59] VITALS: BP 116/59; TEMP 97
[2016-10-26] MEDS: INSULIN LISPRO (humaLOG) 300 UNIT/3 ML VIAL SQ SCH ×2 (08:23→12:45)
[2016-10-26] MEDS: OXYBUTYNIN CHLORIDE 5 MG TAB PO SCH (08:24)
[2016-10-26] MEDS: FAMOTIDINE 20 MG TAB PO SCH (08:24)
[2016-10-26] MEDS ORDERED: ENOXAPARIN 40 MG/0.4 ML SYRINGE SQ SCH (09:00)
--- NOTE | 2016-10-26 10:14 | P.DS ---
Providers Date of admission: 10/25/16 08:55 Expected date of discharge: 10/26/16 Attending physician: Markus Chen Consults: 10/25/16 11:31 Consult Physician Routine Consulting Provider: Young Vu Consult Reason/Comments: Management Do you want consulting provider notified?: Yes Primary care physician: Young Vu [facility] Course: Patient is a 61-year-old female, patient of Dr. Young Vu in the outpatient setting, with medical history significant for reflux esophagitis not controlled with conservative medical management. Patient was admitted to the hospital for elective laparoscopic Manoj fundoplication on 10/25/2016. Patient tolerated procedure well. Postoperative upper GI and barium swallow x-ray without evidence of obstruction or leak. Patient denied dysphagia and was able to tolerate clear liquid diet. Patient had an otherwise uneventful postoperative course and was deemed stable for discharge to home with close follow-up in the outpatient setting. Discharge diagnoses: GERD status post laparoscopic Manoj fundoplication The above impression and plan have been discussed and directed by Dr. Chen. Amanuel RODRIGUEZ acting as scribe for Dr. Chen. Pertinent Studies: Upper GI/barium swallow x-ray Procedures: Laparoscopic Manoj fundoplication Patient Condition at Discharge: Good Plan - Discharge Summary New Discharge Prescriptions: Docusate [Colace] 100 mg PO BID #20 capsule traMADol HCl [Ultram] 50 mg PO Q6H PRN #28 tab PRN Reason: Pain Discharge Medication List Oxybutynin Chloride 5 mg PO BID 09/30/14 [History] glyBURIDE [Diabeta] 5 mg PO AC-SUPPER 09/30/14 [History] Aspirin EC [Ecotrin Low Dose] 81 mg PO AC-SUPPER 08/05/16 [History] Lisinopril [Zestril] 2.5 mg PO AC-SUPPER 08/05/16 [History] Simvastatin [Zocor] 40 mg PO HS 10/25/16 [History] Docusate [Colace] 100 mg PO BID #20 capsule 10/26/16 [Rx] traMADol HCl [Ultram] 50 mg PO Q6H PRN #28 tab 10/26/16 [Rx] Follow up Appointment(s)/Referral(s): Young Vu DO [Primary Care Provider] - 1 Week Markus Chen MD [STAFF PHYSICIAN] - 2 Weeks Patient Instructions/Handouts: *Surgery [facility] - ([facility]) Lap Manoj Fundiplication Post-Op Instructions Activity/Diet/Wound Care/Special Instructions: No heavy lifting, pushing, or pulling items greater than 10 pounds. Full liquid diet for 2 weeks. No caffeinated beverages or straws. Shower daily, no soaking in bath tubs, pools, or hot tubs. No driving while taking pain medication. Notify surgeon with any signs or symptoms of infection, increased pain, or not tolerating diet. Discharge Disposition: HOME SELF-CARE
[2016-10-26 11:47] LABS: Glucose,Whole Blood 113 mg/dL (75-99)
--- NOTE | 2016-10-26 13:59 | P.CONS ---
History of Present Illness - Reason for Consult Consult date: 10/25/16 Medical management Requesting physician: Markus Chen - Chief Complaint GERD - History of Present Illness Patient is a 61-year-old female, patient of Dr. Young Vu in the outpatient setting, with complex medical history noted below significant for reflux esophagitis not controlled with conservative medical management. Patient was admitted to the hospital for elective laparoscopic Manoj fundoplication on 02/2017. Patient tolerated procedure well. Postoperative upper GI and barium swallow x-ray without evidence of obstruction or leak. Upon examination, patient is sitting up in a chair. Patient denies chills, fevers, nausea, vomiting, shortness of breath, chest pain, leg pain or swelling. Patient denies dysphagia. Patient is tolerating a clear liquid diet. Patient is urinating without difficulty. Patient is passing minimal flatus without bowel movement. Afebrile. Past Medical History Past Medical History: Diabetes Mellitus, GERD/Reflux, Hyperlipidemia, Osteoarthritis (OA), Sleep Apnea/CPAP/BIPAP Additional Past Medical History / Comment(s): C-PAP MACHINE History of Any Multi-Drug Resistant Organisms: None Reported Past Surgical History: Cholecystectomy, Heart Catheterization, Hernia Repair, Orthopedic Surgery, Tubal Ligation Additional Past Surgical History / Comment(s): , rt shoulder rotator cuff, left foot surgery, angel luis knee arthroscopy Past Anesthesia/Blood Transfusion Reactions: Previous Problems w/ Anesthesia, Motion Sickness Additional Past Anesthesia/Blood Transfusion Reaction / Comm: " TAKES LONGER WAKING UP Past Psychological History: No Psychological Hx Reported Smoking Status: Former smoker Past Alcohol Use History: None Reported Additional Past Alcohol Use History / Comment(s): STARTED SMOKING AT AGE 17 quit smoking 1999,SMOKED 1PPS Past Drug Use History: None Reported - Past Family History Father Family Medical History: Diabetes Mellitus, Hypertension Mother Family Medical History: CVA/TIA, Diabetes Mellitus, Hypertension Additional Family Medical History / Comment(s): triple bypass, brain anurysm Medications and Allergies Home Medications Medication Instructions Recorded Confirmed Type Oxybutynin Chloride 5 mg PO BID 09/30/14 10/25/16 History glyBURIDE [Diabeta] 5 mg PO AC-SUPPER 09/30/14 10/25/16 History Aspirin EC [Ecotrin Low Dose] 81 mg PO AC-SUPPER 08/05/16 10/25/16 History Lisinopril [Zestril] 2.5 mg PO AC-SUPPER 08/05/16 10/25/16 History Simvastatin [Zocor] 40 mg PO HS 10/25/16 10/25/16 History Allergies Allergy/AdvReac Type Severity Reaction Status Date / Time codeine AdvReac Nausea & Verified 10/20/16 14:23 Vomiting Physical Exam Vitals: Vital Signs Temp Pulse Pulse Resp BP Pulse Ox 10/26/16 07:00 97 F L 62 16 116/59 97 10/26/16 01:23 97.6 F 62 16 118/74 95 10/25/16 22:25 61 16 123/75 98 10/25/16 20:00 16 10/25/16 19:00 97.3 F L 71 16 144/74 93 L 10/25/16 15:00 95 127/78 100 10/25/16 14:45 63 124/87 95 10/25/16 14:30 60 121/60 93 L 10/25/16 14:15 61 121/59 95 10/25/16 14:00 58 L 131/65 97 Intake and Output 10/25/16 10/26/16 10/26/16 22:59 06:59 14:59 Intake Total 1000 560 Output Total 600 1620 350 Balance -600 -620 210 Intake: IV 1000 Lactated Ringers 1,000 ml 1000 @ 125 mls/hr IV .Q8H ONE Rx#:[id number] Oral 560 Output: Urine 600 1620 350 Other: Voiding Method Toilet Toilet # Voids 2 1 Weight 104.326 kg Patient Weight 10/27/16 06:59 Weight 104.326 kg GENERAL: Pt awake and alert, well-appearing, well-nourished, and in no acute distress. HEAD: Atraumatic, normocephalic. EYES: Pupils equal, round, sclera anicteric, conjunctiva are normal. ENT: Moist mucous membranes. NECK: Supple without lymphadenopathy or JVD. LUNGS: Breath sounds diminished to auscultation bilaterally. No wheezes, rales , or rhonchi. HEART: Heart S1, S2, no S3 or S4. Regular rate and rhythm. No murmurs, rubs or gallops. ABDOMEN: Soft, mild incisional tenderness, nondistended, normoactive bowel sounds. No guarding, no rebound. Laparoscopic surgical incisions dry, intact, no erythema and drainage. EXTREMITIES: Palpable peripheral pulses. No edema. No calf tenderness. NEUROLOGICAL: Pt oriented x 3. No focal deficits noted. Strength and sensation grossly intact. PSYCH: Normal mood, normal affect. SKIN: Warm, dry, intact. Normal turgor. No rashes or lesions. Results Labs: Abnormal Lab Results - Last 24 Hours (Table) 10/25/16 10/25/16 10/26/16 Range/Units 16:48 20:39 07:21 POC Glucose (mg/dL) 172 H 183 H 132 H (75-99) mg/dL 10/26/16 Range/Units 11:41 POC Glucose (mg/dL) 113 H (75-99) mg/dL Assessment and Plan Plan: Impression: 1. GERD status post lap scuffing Manoj fundoplication. 2. Diabetes mellitus type 2. 3. Hyperlipidemia. 4. Osteoarthritis. 5. Obstructive sleep apnea with use of CPAP machine. 6. Obesity. BMI 37.1. 7. History of nicotine dependence. Plan: Continue surgical management by surgical service. Home medications have been reviewed and resumed as appropriate. Continue supportive treatment and pain management. Increase ambulation. From a medical standpoint, she was stable for discharge to home when cleared by surgery. Patient will follow-up with Dr. Vu in 1 week after discharge. The above impression and plan have been discussed and directed by Dr. Vu. Amanuel RODRIGUEZ acting as scribe for Dr. Vu.
== END 2016-10-26 18:14 | disposition home or self-care (01) | DRG 328 ==
LOC: 2ORWHC 08:55 → 3SUR 12:16
PROVIDERS: ADMIT Surgery; ATTEND Surgery
PROC: 0DV44ZZ Restriction of Esophagogastric Junction, Percutaneous Endoscopic Approach (ICD-10-PCS; principal; 2016-10-25 10:35)
DX: K21.9 Gastro-esophageal reflux disease without esophagitis (principal); E66.9 Obesity, unspecified; E11.9 Type 2 diabetes mellitus without complications; E78.5 Hyperlipidemia, unspecified; G47.33 Obstructive sleep apnea (adult) (pediatric); M19.90 Unspecified osteoarthritis, unspecified site; Z68.37 Body mass index [BMI] 37.0-37.9, adult; Z79.899 Other long term (current) drug therapy; Z82.49 Family history of ischemic heart disease and other diseases of the circulatory system; Z87.891 Personal history of nicotine dependence; Z79.82 Long term (current) use of aspirin; Z88.5 Allergy status to narcotic agent
CPT/HCPCS: 74240; 83036; 85025; 93005

== ENCOUNTER 2016-11-17 12:34 | Emergency (ER) | payer BC ==
--- NOTE | 2016-11-17 12:59 | ED ---
General Adult HPI - General Chief complaint: Upper Respiratory Infection Stated complaint: Poss Collapsed Left Lung Time Seen by Provider: 11/17/16 12:35 Source: patient, RN notes reviewed Mode of arrival: ambulatory Limitations: no limitations - History of Present Illness Initial comments: This is a 61-year-old female presents emergency Department complaining of recently having some upper respiratory symptoms nasal drainage little bit of a sore throat and some ear pressure. Patient states she went to urgent care and they did a chest x-ray. Patient states today she got a call from the urgent care stating that they think she might have a pneumothorax. Patient denies any shortness of breath or chest pain. Patient denies any pleuritic pain. Patient denies any fever chills. Patient denies any abdominal pain patient denies nausea or vomiting. Patient denies headache patient denies numbness weakness. Patient states she was at work today and wasn't feeling better all showing comes in because of the phone call she received. - Related Data Home Medications Medication Instructions Recorded Confirmed Oxybutynin Chloride 5 mg PO TID 09/30/14 11/17/16 glyBURIDE [Diabeta] 5 mg PO AC-SUPPER 09/30/14 11/17/16 Aspirin EC [Ecotrin Low Dose] 81 mg PO HS 08/05/16 11/17/16 Lisinopril [Zestril] 2.5 mg PO HS 08/05/16 11/17/16 Simvastatin [Zocor] 40 mg PO HS 10/25/16 11/17/16 Albuterol Inhaler [Ventolin Hfa 2 puff INHALATION Q6HR PRN 11/17/16 11/17/16 Inhaler] Amoxicillin/Potassium Clav 1 tab PO BID 11/17/16 11/17/16 [Augmentin 875-125 Tablet] Benzonatate [Tessalon Perles] 100 mg PO TID PRN 11/17/16 11/17/16 Magnesium 200 mg PO HS 11/17/16 11/17/16 Pseudoephedrine [Sudafed] 30 mg PO Q4H PRN 11/17/16 11/17/16 Allergies Allergy/AdvReac Type Severity Reaction Status Date / Time codeine AdvReac Nausea & Verified 11/17/16 14:31 Vomiting Review of Systems ROS Statement: Those systems with pertinent positive or pertinent negative responses have been documented in the HPI. ROS Other: All systems not noted in ROS Statement are negative. Past Medical History Past Medical History: Diabetes Mellitus, GERD/Reflux, Hyperlipidemia, Osteoarthritis (OA), Sleep Apnea/CPAP/BIPAP Additional Past Medical History / Comment(s): C-PAP MACHINE History of Any Multi-Drug Resistant Organisms: None Reported Past Surgical History: Cholecystectomy, Heart Catheterization, Hernia Repair, Orthopedic Surgery, Tubal Ligation Additional Past Surgical History / Comment(s): , rt shoulder rotator cuff, left foot surgery, angel luis knee arthroscopy Past Anesthesia/Blood Transfusion Reactions: Previous Problems w/ Anesthesia, Motion Sickness Additional Past Anesthesia/Blood Transfusion Reaction / Comment(s): " TAKES LONGER WAKING UP Past Psychological History: No Psychological Hx Reported Smoking Status: Former smoker Past Alcohol Use History: None Reported Additional Past Alcohol Use History / Comment(s): STARTED SMOKING AT AGE 17 quit smoking 1999,SMOKED 1PPS Past Drug Use History: None Reported - Past Family History Father Family Medical History: Diabetes Mellitus, Hypertension Mother Family Medical History: CVA/TIA, Diabetes Mellitus, Hypertension Additional Family Medical History / Comment(s): triple bypass, brain anurysm General Exam - General Exam Comments Initial Comments: GENERAL: Patient is well-developed and well-nourished. Patient is nontoxic and well- hydrated and is in no acute distress. ENT: Neck is soft and supple. No significant lymphadenopathy is noted. Oropharynx is clear. Moist mucous membranes. Neck has full range of motion without eliciting any pain. EYES: The sclera were anicteric and conjunctiva were pink and moist. Extraocular movements were intact and pupils were equal round and reactive to light. Eyelids were unremarkable. PULMONARY: Unlabored respirations. Good breath sounds bilaterally. No audible rales rhonchi or wheezing was noted. CARDIOVASCULAR: There is a regular rate and rhythm without any murmurs gallops or rubs. ABDOMEN: Soft and nontender with normal bowel sounds. No palpable organomegaly was noted. There is no palpable pulsatile mass. SKIN: Skin is clear with no lesions or rashes and otherwise unremarkable. NEUROLOGIC: Patient is alert and oriented x3. Cranial nerves II through XII are grossly intact. Motor and sensory are also intact. Normal speech, volume and content. Symmetrical smile. MUSCULOSKELETAL: Normal extremities with adequate strength and full range of motion. No lower extremity swelling or edema. No calf tenderness. LYMPHATICS: No significant lymphadenopathy is noted PSYCHIATRIC: Normal psychiatric evaluation. Limitations: no limitations Course Vital Signs 11/17/16 11/17/16 12:37 13:40 Temperature 97.9 F 99.0 F Pulse Rate 93 78 Respiratory 18 16 Rate Blood Pressure 140/60 113/71 O2 Sat by Pulse 98 95 Oximetry Medical Decision Making - Medical Decision Making Chest x-ray shows no pneumothorax. - Lab Data Result diagrams: 11/17/16 12:55 11/17/16 12:55 Lab Results 11/17/16 11/17/16 11/17/16 Range/Units 12:55 12:55 12:55 WBC 6.5 (3.8-10.6) k/uL RBC 4.46 (3.80-5.40) m/uL Hgb 14.4 (11.4-16.0) gm/dL Hct 40.4 (34.0-46.0) % MCV 90.5 (80.0-100.0) fL MCH 32.2 (25.0-35.0) pg MCHC 35.6 (31.0-37.0) g/dL RDW 12.9 (11.5-15.5) % Plt Count 298 (150-450) k/uL Neutrophils % 52 % Lymphocytes % 25 % Monocytes % 8 % Eosinophils % 10 % Basophils % 0 % Neutrophils # 3.4 (1.3-7.7) k/uL Lymphocytes # 1.6 (1.0-4.8) k/uL Monocytes # 0.5 (0-1.0) k/uL Eosinophils # 0.7 (0-0.7) k/uL Basophils # 0.0 (0-0.2) k/uL PT 10.3 (9.0-12.0) sec INR 1.0 (<1.1) APTT 23.1 (22.0-30.0) sec Sodium 140 (137-145) mmol/L Potassium 4.5 (3.5-5.1) mmol/L Chloride 106 (98-107) mmol/L Carbon Dioxide 25 (22-30) mmol/L Anion Gap 9 mmol/L BUN 15 (7-17) mg/dL Creatinine 0.75 (0.52-1.04) mg/dL Est GFR (MDRD) Af Amer >60 (>60 ml/min/1.73 sqM) Est GFR (MDRD) Non-Af >60 (>60 ml/min/1.73 sqM) Glucose 116 H (74-99) mg/dL Calcium 9.3 (8.4-10.2) mg/dL Total Bilirubin 0.9 (0.2-1.3) mg/dL AST 20 (14-36) U/L ALT 30 (9-52) U/L Alkaline Phosphatase 109 (38-126) U/L Total Protein 7.2 (6.3-8.2) g/dL Albumin 3.9 (3.5-5.0) g/dL Disposition Clinical Impression: Upper respiratory infection Disposition: HOME SELF-CARE Instructions: Upper Respiratory Infection (ED) Referrals: Young Vu DO [Primary Care Provider] - 1-2 days Time of Disposition: 14:43
[2016-11-17 13:23] LABS: Basophils % (A) 0 %; CH 31.7; CHCM 35.1; Eosinophils # (A) 0.7 k/uL (0-0.7); Eosinophils % (A) 10 %; HCT 40.4 % (34.0-46.0); HDW 2.58; HGB 14.4 gm/dL (11.4-16.0); Luc # (Auto) 0.28; Luc % (Auto) 4; Lymphocytes # (A) 1.6 k/uL (1.0-4.8); Lymphocytes % (A) 25 %; MCH 32.2 pg (25.0-35.0); MCHC 35.6 g/dL (31.0-37.0); MCV 90.5 fL (80.0-100.0); Mean Platelet Volume 7.4; Monocytes # (A) 0.5 k/uL (0-1.0); Monocytes % (A) 8 %; Neutrophils # (A) 3.4 k/uL (1.3-7.7); Neutrophils % (A) 52 %; RBC 4.46 m/uL (3.80-5.40); RDW 12.9 % (11.5-15.5); WBC 6.5 k/uL (3.8-10.6); WBC (Perox) 6.56
[2016-11-17 13:24] LABS: Partial Thromboplastin Time 23.1 sec (22.0-30.0); Prothrombin Time 10.3 sec (9.0-12.0)
--- NOTE | 2016-11-17 13:27 | XR ---
EXAMINATION TYPE: XR chest special view(s) DATE OF EXAM: 11/17/2016 COMPARISON: NONE HISTORY: Shortness of breath TECHNIQUE: Frontal and lateral views of the chest are obtained. FINDINGS: Scattered senescent parenchymal changes noted. Hyperinflation compatible with COPD. No evidence for infiltrate. No evidence for atelectasis. Heart size is enlarged without evidence for congestive failure. Mediastinal structures are stable and grossly unremarkable. No evidence for hilar prominence. Degenerative changes dorsal spine. IMPRESSION: 1. No evidence for acute pulmonary disease.
[2016-11-17 13:30] LABS: ALT 30 U/L (9-52); AST 20 U/L (14-36); Alkaline Phosphatase 109 U/L (38-126); Anion Gap 9 mmol/L; Blood Urea Nitrogen 15 mg/dL (7-17); Calcium 9.3 mg/dL (8.4-10.2); Carbon Dioxide 25 mmol/L (22-30); Chloride 106 mmol/L (98-107); Glucose 116 mg/dL (74-99); Non-African American GFR(MDRD) >60 (>60 ml/min/1.73 sqM); Potassium 4.5 mmol/L (3.5-5.1); Sodium 140 mmol/L (137-145); Total Bilirubin 0.9 mg/dL (0.2-1.3); Total Protein 7.2 g/dL (6.3-8.2)
[2016-11-17 14:48] VITALS: PULSE 88
[2016-11-17 14:55] VITALS: BP 118/87; RESP 16; TEMP 97.1
== END 2016-11-17 14:55 | disposition home or self-care (01) ==
LOC: EC 12:34
DX: J06.9 Acute upper respiratory infection, unspecified (principal); E11.9 Type 2 diabetes mellitus without complications; E78.5 Hyperlipidemia, unspecified; Z87.891 Personal history of nicotine dependence; Z79.82 Long term (current) use of aspirin; Z79.899 Other long term (current) drug therapy; Z88.5 Allergy status to narcotic agent
CPT/HCPCS: 36415; 71035; 80053; 85025; 85610; 85730; 99283

== ENCOUNTER 2017-01-06 15:30 | Emergency (ER) | payer BC ==
[2017-01-06 15:56] VITALS: BP 125/60; PULSE 86; RESP 18; TEMP 98.1
--- NOTE | 2017-01-06 16:27 | ED ---
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 Fall Witnessed: yes, by family Place Fall Occurred: home Loss of Consciousness: none Prolonged Down Time?: no Symptoms Prior to Fall: none Location: head (Abrasion to the face lateral to left eye), other Location - Extremities: Left: Knee (Abrasion to left knee), Leg (Tenderness to lateral aspect of left leg below-knee) Severity: moderate Severity scale (1-10): 4 Quality: sharp Context: tripped/slipped Associated Symptoms: denies - Related Data Home Medications Medication Instructions Recorded Confirmed Oxybutynin Chloride 5 mg PO TID 09/30/14 11/17/16 glyBURIDE [Diabeta] 5 mg PO AC-SUPPER 09/30/14 11/17/16 Aspirin EC [Ecotrin Low Dose] 81 mg PO HS 08/05/16 11/17/16 Lisinopril [Zestril] 2.5 mg PO HS 08/05/16 11/17/16 Simvastatin [Zocor] 40 mg PO HS 10/25/16 11/17/16 Albuterol Inhaler [Ventolin Hfa 2 puff INHALATION Q6HR PRN 11/17/16 11/17/16 Inhaler] Amoxicillin/Potassium Clav 1 tab PO BID 11/17/16 11/17/16 [Augmentin 875-125 Tablet] Benzonatate [Tessalon Perles] 100 mg PO TID PRN 11/17/16 11/17/16 Magnesium 200 mg PO HS 11/17/16 11/17/16 Pseudoephedrine [Sudafed] 30 mg PO Q4H PRN 11/17/16 11/17/16 Allergies Allergy/AdvReac Type Severity Reaction Status Date / Time codeine AdvReac Nausea & Verified 01/06/17 15:56 Vomiting Review of Systems ROS Statement: Those systems with pertinent positive or pertinent negative responses have been documented in the HPI. ROS Other: All systems not noted in ROS Statement are negative. 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 History of Any Multi-Drug Resistant Organisms: None Reported Past Surgical History: Cholecystectomy, Heart Catheterization, Hernia Repair, Orthopedic Surgery, Tubal Ligation Additional Past Surgical History / Comment(s): , rt shoulder rotator cuff, left foot surgery, angel luis knee arthroscopy Past Anesthesia/Blood Transfusion Reactions: Previous Problems w/ Anesthesia, Motion Sickness Additional Past Anesthesia/Blood Transfusion Reaction / Comment(s): " TAKES LONGER WAKING UP Past Psychological History: No Psychological Hx Reported Smoking Status: Former smoker Past Alcohol Use History: None Reported Past Drug Use History: None Reported - Past Family History Father Family Medical History: Diabetes Mellitus, Hypertension Mother Family Medical History: CVA/TIA, Diabetes Mellitus, Hypertension Additional Family Medical History / Comment(s): triple bypass, brain anurysm General Exam Limitations: no limitations General appearance: alert, in no apparent distress Head exam: Present: normocephalic. Absent: atraumatic (Abrasion to left face lateral to left eye) Eye exam: Present: normal appearance, PERRL, EOMI. Absent: scleral icterus, conjunctival injection, nystagmus, periorbital swelling, periorbital tenderness ENT exam: Present: normal exam, normal oropharynx, mucous membranes moist, TM's normal bilaterally, normal external ear exam Neck exam: Present: normal inspection, full ROM. Absent: tenderness, lymphadenopathy Respiratory exam: Present: normal lung sounds bilaterally. Absent: respiratory distress, wheezes, rales, rhonchi Cardiovascular Exam: Present: regular rate, normal rhythm, normal heart sounds. Absent: systolic murmur GI/Abdominal exam: Present: soft, normal bowel sounds. Absent: distended Left Hip exam: Present: normal inspection, full ROM. Absent: tenderness, swelling Upper Leg exam: Present: normal inspection, full ROM. Absent: tenderness, swelling Knee exam: Present: full ROM, tenderness (Tenderness to inferior aspect of left knee), abrasion (Abrasion to anterior aspect left knee) Lower Leg exam: Present: tenderness (Tenderness to lateral aspect of lower left leg below-knee) Ankle exam: Present: normal inspection, full ROM. Absent: tenderness, swelling Foot/Toe exam: Present: normal inspection, full ROM. Absent: tenderness, swelling Neurovascular tendon exam: Present: no vascular compromise. Absent: pulse deficit, motor deficit, sensory deficit, extremity cold to touch, foot drop, significant pain with passive ROM of distal joint Gait: antalgic Back exam: Present: normal inspection. Absent: paraspinal tenderness, vertebral tenderness Neurological exam: Present: alert, oriented X3, other (No focal deficits noted) Psychiatric exam: Present: normal affect, normal mood Skin exam: Present: warm, dry Course Vital Signs 01/06/17 15:52 Temperature 98.1 F Pulse Rate 86 Respiratory 18 Rate Blood Pressure 125/60 O2 Sat by Pulse 98 Oximetry Medical Decision Making - Medical Decision Making Abrasion to left face. Contusion to left knee and left lower leg. X-ray of left knee and left lower leg without evidence of fracture or dislocation. Patient instructed to follow-up with primary care physician. Patient agrees with treatment plan. Discharge instructions and return parameters reviewed. - Radiology Data Radiology results: report reviewed X-ray report of left knee: Osteoarthritic changes. No fracture. Mild soft tissue swelling. X-ray tibia-fibula left: There are plantar and Achilles calcaneal spurs. No fracture or dislocation. Mild soft tissue swelling around the lower leg. Disposition Clinical Impression: Fall, Abrasion, face w/o infection, Contusion of left leg, Abrasion Disposition: HOME SELF-CARE Condition: Good Instructions: Fall Prevention for Older Adults (ED), Abrasion (ED) Additional Instructions: Continue ice, elevation, and Tylenol for knee and leg pain. Clean abrasion to left face with mild soap and water and apply topical antibiotic ointment twice daily. Follow-up with primary care physician in next 2-3 days. Follow-up with orthopedic service in 7-10 days if symptoms persist. Please return to the emergency department with any new or worsening symptoms. Referrals: Young Vu DO [Primary Care Provider] - 1-2 days Paulo Suresh MD [STAFF PHYSICIAN] - 1-2 days (Follow-up as needed in 7-10 days if pain persists.) Time of Disposition: 17:24
--- NOTE | 2017-01-06 16:57 | XR ---
EXAMINATION TYPE: XR knee complete LT DATE OF EXAM: 01/06/2017 COMPARISON: NONE HISTORY: Pain after fall TECHNIQUE: 3 views FINDINGS: There is mild narrowing of medial joint space. There is spurring of medial femoral and tibi al condyles. There is mild spurring anterior to the patella. There is no sign of joint effusion. Ther e is spurring at the tibial tubercle. IMPRESSION: Osteoarthritic changes. No fracture. Mild soft tissue swelling.
--- NOTE | 2017-01-06 16:58 | XR ---
EXAMINATION TYPE: XR tibia fibula LT DATE OF EXAM: 01/06/2017 COMPARISON: NONE HISTORY: Pain TECHNIQUE: 4 views FINDINGS: There are plantar and Achilles calcaneal spurs. I see no fracture nor dislocation. There is mild soft tissue swelling around the lower leg. IMPRESSION: Mild soft tissue swelling. No fracture seen.
[2017-01-06] MEDS ORDERED: ACETAMINOPHEN TAB 325 MG TAB PO STA (17:30)
== END 2017-01-06 17:36 | disposition home or self-care (01) ==
LOC: EC 15:30
DX: S80.02XA Contusion of left knee, initial encounter (principal); S80.12XA Contusion of left lower leg, initial encounter; S00.81XA Abrasion of other part of head, initial encounter; M17.12 Unilateral primary osteoarthritis, left knee; M77.32 Calcaneal spur, left foot; E78.5 Hyperlipidemia, unspecified; E11.9 Type 2 diabetes mellitus without complications; M19.90 Unspecified osteoarthritis, unspecified site; Z87.891 Personal history of nicotine dependence; Z79.82 Long term (current) use of aspirin; Z79.84 Long term (current) use of oral hypoglycemic drugs; Z79.899 Other long term (current) drug therapy; Z88.5 Allergy status to narcotic agent; W01.198A Fall on same level from slipping, tripping and stumbling with subsequent striking against other object, initial encounter; Y92.009 Unspecified place in unspecified non-institutional (private) residence as the place of occurrence of the external cause; Y93.01 Activity, walking, marching and hiking
CPT/HCPCS: 99283

== ENCOUNTER 2017-09-14 08:54 | Emergency (ER) | payer BC ==
[2017-09-14] MEDS ORDERED: SODIUM CHLORIDE 0.9% 1,000 ML IV STA (09:40)
[2017-09-14] MEDS ORDERED: ONDANSETRON 4 MG/2 ML VIAL IVP STA (09:40)
[2017-09-14] MEDS ORDERED: KETOROLAC 30 MG/ML 1 ML VIAL IVP STA (10:03)
[2017-09-14] MEDS ORDERED: MECLIZINE 12.5 MG TAB PO STA (10:11)
[2017-09-14 10:47] LABS: Basophils % (A) 0 %; Eosinophils # (A) 0.3 k/uL (0-0.7); Eosinophils % (A) 4 %; HCT 40.9 % (34.0-46.0); HGB 14.4 gm/dL (11.4-16.0); Lymphocytes # (A) 1.4 k/uL (1.0-4.8); Lymphocytes % (A) 17 %; MCH 30.7 pg (25.0-35.0); MCHC 35.2 g/dL (31.0-37.0); MCV 87.2 fL (80.0-100.0); Mean Platelet Volume 8.1; Monocytes # (A) 0.5 k/uL (0-1.0); Monocytes % (A) 5 %; Neutrophils % (A) 72 %; Platelet Count 299 k/uL (150-450); RBC 4.69 m/uL (3.80-5.40); RDW 12.4 % (11.5-15.5); WBC 8.4 k/uL (3.8-10.6)
--- NOTE | 2017-09-14 10:51 | ED ---
Nausea/Vomiting/Diarrhea HPI - General Chief complaint: Nausea/Vomiting/Diarrhea Stated complaint: Vomiting Time Seen by Provider: 09/14/17 09:20 Source: patient, RN notes reviewed, old records reviewed Mode of arrival: wheelchair Limitations: no limitations - History of Present Illness Initial comments: This is 62-year-old feel presents emergency Department stay chief complaint of an acute exacerbation of Mnire's disease. Patient reports that she woke up today and felt very dizzy has been vomiting. She states that she has no specific abdominal pain or headache. She states that she's had these attacks in the past. She took a meclizine pill but then vomited shortly afterward. Patient states she only used that for acute exacerbations. She follows up with your nose and throat specialist. Denies any fever or chills. - Related Data Home Medications Medication Instructions Recorded Confirmed Oxybutynin Chloride 5 mg PO TID 09/30/14 09/14/17 glyBURIDE [Diabeta] 5 mg PO AC-SUPPER 09/30/14 09/14/17 Aspirin EC [Ecotrin Low Dose] 81 mg PO HS 08/05/16 09/14/17 Lisinopril [Zestril] 2.5 mg PO HS 08/05/16 09/14/17 Simvastatin [Zocor] 40 mg PO HS 10/25/16 09/14/17 Albuterol Inhaler [Ventolin Hfa 2 puff INHALATION Q6HR PRN 11/17/16 09/14/17 Inhaler] Magnesium 200 mg PO HS 11/17/16 09/14/17 ALPRAZolam [Xanax] 0.5 mg PO DAILY PRN 09/14/17 09/14/17 Meclizine Unknown Dose 1 tab PO DAILY PRN 09/14/17 09/14/17 Metoprolol Tartrate [Lopressor] 12.5 mg PO BID 09/14/17 09/14/17 Naproxen Sodium [Aleve] 440 mg PO DAILY PRN 09/14/17 09/14/17 Previous Rx's Medication Instructions Recorded Diazepam [Valium] 5 mg PO TID #12 tab 09/14/17 Meclizine HCl 25 mg PO TID #20 tablet 09/14/17 Ondansetron Odt [Zofran Odt] 4 mg PO Q8HR PRN #12 tab 09/14/17 Allergies Allergy/AdvReac Type Severity Reaction Status Date / Time codeine AdvReac Nausea & Verified 09/14/17 09:12 Vomiting Review of Systems ROS Statement: Those systems with pertinent positive or pertinent negative responses have been documented in the HPI. ROS Other: All systems not noted in ROS Statement are negative. 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 History of Any Multi-Drug Resistant Organisms: None Reported Past Surgical History: Cholecystectomy, Heart Catheterization, Hernia Repair, Orthopedic Surgery, Tubal Ligation Additional Past Surgical History / Comment(s): , rt shoulder rotator cuff, left foot surgery, angel luis knee arthroscopy Past Anesthesia/Blood Transfusion Reactions: Previous Problems w/ Anesthesia, Motion Sickness Additional Past Anesthesia/Blood Transfusion Reaction / Comment(s): " TAKES LONGER WAKING UP Past Psychological History: No Psychological Hx Reported Smoking Status: Former smoker Past Alcohol Use History: None Reported Past Drug Use History: None Reported - Past Family History Father Family Medical History: Diabetes Mellitus, Hypertension Mother Family Medical History: CVA/TIA, Diabetes Mellitus, Hypertension Additional Family Medical History / Comment(s): triple bypass, brain anurysm General Exam - General Exam Comments Initial Comments: 62-year-old female. Patient appears in moderate discomfort. She is in a dark room. Head resting on her hands. Limitations: no limitations General appearance: alert, in no apparent distress Head exam: Present: atraumatic, normocephalic, normal inspection Eye exam: Present: normal appearance, PERRL, EOMI, nystagmus (on left lateral gaze.). Absent: scleral icterus, conjunctival injection, periorbital swelling ENT exam: Present: normal exam, mucous membranes moist Neck exam: Present: normal inspection. Absent: tenderness, meningismus, lymphadenopathy Respiratory exam: Present: normal lung sounds bilaterally. Absent: respiratory distress, wheezes, rales, rhonchi, stridor Cardiovascular Exam: Present: regular rate, normal rhythm, normal heart sounds. Absent: systolic murmur, diastolic murmur, rubs, gallop, clicks GI/Abdominal exam: Present: soft, normal bowel sounds. Absent: distended, tenderness, guarding, rebound, rigid Extremities exam: Present: normal inspection Back exam: Present: normal inspection Neurological exam: Present: alert, oriented X3, CN II-XII intact Psychiatric exam: Present: normal affect, normal mood Skin exam: Present: warm, dry, intact, normal color. Absent: rash Course Vital Signs 09/14/17 09/14/17 09/14/17 08:55 11:24 12:54 Temperature 98 F 97.7 F 97.7 F Pulse Rate 86 66 89 Respiratory 18 16 16 Rate Blood Pressure 133/75 146/67 142/62 O2 Sat by Pulse 98 97 99 Oximetry - Reevaluation(s) Reevaluation #1: 09/14/17 11:44 Patient is reevaluated this time. She reports that she's feeling somewhat better after receiving the medications. She states that she still feels weak and tired. She states that she has been able to move her head without is so much dizziness. Medical Decision Making - Medical Decision Making This is 62-year-old feel presents emergency Department stay chief complaint of an acute exacerbation of Mnire's disease. Patient reports that she woke up today and felt very dizzy has been vomiting. She states that she has no specific abdominal pain or headache. She states that she's had these attacks in the past. She took a meclizine pill but then vomited shortly afterward. Patient states she only used that for acute exacerbations. Patient was given IV fluids, zofran, and labs obtained. Labs were reviewed and normal. She does have some nystagmus on exam, and dizziness is worse with laying down compared to sitting. Patient then received meclizine and reports she is feeling somewhat better at this time. She feels well to go home. Will discharge with valium, zofran, and meclizine for acute exacerbation of vertigo. All questions answered and return parameters discussed. - Lab Data Result diagrams: 09/14/17 09:30 09/14/17 09:30 Lab Results 09/14/17 09/14/17 Range/Units 09:30 09:30 WBC 8.4 (3.8-10.6) k/uL RBC 4.69 (3.80-5.40) m/uL Hgb 14.4 (11.4-16.0) gm/dL Hct 40.9 (34.0-46.0) % MCV 87.2 (80.0-100.0) fL MCH 30.7 (25.0-35.0) pg MCHC 35.2 (31.0-37.0) g/dL RDW 12.4 (11.5-15.5) % Plt Count 299 (150-450) k/uL Neutrophils % 72 % Lymphocytes % 17 % Monocytes % 5 % Eosinophils % 4 % Basophils % 0 % Neutrophils # 6.0 (1.3-7.7) k/uL Lymphocytes # 1.4 (1.0-4.8) k/uL Monocytes # 0.5 (0-1.0) k/uL Eosinophils # 0.3 (0-0.7) k/uL Basophils # 0.0 (0-0.2) k/uL Sodium 142 (137-145) mmol/L Potassium 4.7 (3.5-5.1) mmol/L Chloride 107 (98-107) mmol/L Carbon Dioxide 22 (22-30) mmol/L Anion Gap 13 mmol/L BUN 16 (7-17) mg/dL Creatinine 0.60 (0.52-1.04) mg/dL Est GFR (CKD-EPI)AfAm >90 (>60 ml/min/1.73 sqM) Est GFR (CKD-EPI)NonAf >90 (>60 ml/min/1.73 sqM) Glucose 155 H (74-99) mg/dL Calcium 9.6 (8.4-10.2) mg/dL Total Bilirubin 0.8 (0.2-1.3) mg/dL AST 18 (14-36) U/L ALT 19 (9-52) U/L Alkaline Phosphatase 110 (38-126) U/L Total Protein 6.8 (6.3-8.2) g/dL Albumin 3.6 (3.5-5.0) g/dL Amylase <30 L (30-110) U/L Lipase 34 (23-300) U/L Disposition Clinical Impression: Vertigo Disposition: HOME SELF-CARE Condition: Good Instructions: Acute Nausea and Vomiting (ED) Additional Instructions: Patient advised to follow-up with research program intern Dr. Ruiz. Take the medications as prescribed. Return to the emergency department if any alarming signs or symptoms occur. Prescriptions: Diazepam [Valium] 5 mg PO TID #12 tab Meclizine HCl 25 mg PO TID #20 tablet Ondansetron Odt [Zofran Odt] 4 mg PO Q8HR PRN #12 tab PRN Reason: Nausea Referrals: Young Vu DO [Primary Care Provider] - 1-2 days Cristi Ortiz DO [Doctor of Osteopathic Medicine] - 1-2 days Time of Disposition: 12:34
[2017-09-14 10:57] LABS: ALT 19 U/L (9-52); AST 18 U/L (14-36); Albumin 3.6 g/dL (3.5-5.0); Alkaline Phosphatase 110 U/L (38-126); Amylase <30 U/L (30-110); Anion Gap 13 mmol/L; Blood Urea Nitrogen 16 mg/dL (7-17); Calcium 9.6 mg/dL (8.4-10.2); Carbon Dioxide 22 mmol/L (22-30); Chloride 107 mmol/L (98-107); Glucose 155 mg/dL (74-99); Lipase 34 U/L (23-300); Potassium 4.7 mmol/L (3.5-5.1); Sodium 142 mmol/L (137-145); Total Bilirubin 0.8 mg/dL (0.2-1.3); Total Protein 6.8 g/dL (6.3-8.2)
[2017-09-14 11:27] VITALS: RESP 16; TEMP 97.7
[2017-09-14 12:55] VITALS: BP 142/62; PULSE 89
== END 2017-09-14 13:05 | disposition home or self-care (01) ==
LOC: EC 08:54
DX: R42 Dizziness and giddiness (principal); R11.2 Nausea with vomiting, unspecified; R19.7 Diarrhea, unspecified; E11.9 Type 2 diabetes mellitus without complications; E78.5 Hyperlipidemia, unspecified; G47.30 Sleep apnea, unspecified; Z99.89 Dependence on other enabling machines and devices; Z87.891 Personal history of nicotine dependence; Z79.899 Other long term (current) drug therapy; Z88.5 Allergy status to narcotic agent
CPT/HCPCS: 36415; 80053; 82150; 83690; 85025; 96361; 96374; 96375; 99284

== ENCOUNTER → 2017-09-20 | Outpatient (CLI) | payer BC ==
[2017-09-20 10:14] LABS: T4, Free (Free Thyroxine) 1.19 ng/dL (0.78-2.19)
[2017-09-20 19:19] LABS: Thyroid Peroxidase Antibodies 46.8 U/mL (0.0-60.0)
[2017-09-20 19:25] LABS: Vitamin D 25 Hydroxy 8.8 ng/mL (30.0-100.0)
== END | disposition home or self-care (01) ==
LOC: LABWHC1 08:52
PROVIDERS: ATTEND Nurse Practitioner Family
DX: K11.7 Disturbances of salivary secretion (principal); M35.9 Systemic involvement of connective tissue, unspecified
CPT/HCPCS: 36415; 82306; 84439; 84443; 86038; 86235; 86376

== ENCOUNTER → 2017-11-06 | Outpatient (CLI) | payer BC ==
--- NOTE | 2017-11-06 16:37 | XR ---
EXAMINATION TYPE: XR cervical spine comp DATE OF EXAM: 11/06/2017 COMPARISON: NONE HISTORY: Neck pain TECHNIQUE: 5 views FINDINGS: Vertebra have normal alignment. Posterior elements are intact. There is narrowing and spur formation from C3 to C7. Atlantoaxial facet joint is normal. There are no cervical ribs. IMPRESSION: Mild multilevel spondylosis. No fracture.
--- NOTE | 2017-11-06 17:36 | XR ---
EXAMINATION TYPE: XR thoracic spine complete DATE OF EXAM: 11/06/2017 COMPARISON: NONE HISTORY: Back pain TECHNIQUE: 3 views FINDINGS: The vertebra have normal alignment. Posterior elements are intact. There is no paraspinal m ass. I see no compression fracture. There is spurring in the lower thoracic spine. IMPRESSION: Spondylotic changes in the lower thoracic spine. No fracture seen.
== END | disposition home or self-care (01) ==
LOC: RADXRMAIN 16:09
PROVIDERS: ATTEND Family Medicine
DX: M47.812 Spondylosis without myelopathy or radiculopathy, cervical region (principal); M47.814 Spondylosis without myelopathy or radiculopathy, thoracic region
CPT/HCPCS: 72050; 72072

== ENCOUNTER → 2017-11-27 | Outpatient (CLI) | payer BC ==
--- NOTE | 2017-11-27 16:56 | US ---
EXAMINATION TYPE: US venous doppler duplex LE DATE OF EXAM: 11/27/2017 4:46 PM COMPARISON: NONE CLINICAL HISTORY: I82.409 DVT. Bilateral lower extremity skin redness and foot swelling; AFIB SIDE PERFORMED: Bilateral TECHNIQUE: The lower extremity deep venous system is examined utilizing real time linear array sonog brian with graded compression, doppler sonography and color-flow sonography. VESSELS IMAGED: Common Femoral Vein Deep Femoral Vein Greater Saphenous Vein * Femoral Vein Popliteal Vein Small Saphenous Vein * Proximal Calf Veins (* superficial vessels) Right Leg: Negative for DVT. Patient was unable to tolerate vein compression maneuver at Right CFV a nd CFV with Greater Saph. Vein at groin as too painful per patient. Left Leg: Negative for DVT IMPRESSION: No evidence of deep venous thrombosis in the right leg and left leg.
== END ==
LOC: RADUSWWP 16:07
PROVIDERS: ATTEND Podiatrist Foot & Ankle Surgery
DX: I82.409 Acute embolism and thrombosis of unspecified deep veins of unspecified lower extremity (principal)
CPT/HCPCS: 93970

== ENCOUNTER → 2018-09-07 | Outpatient (CLI) | payer BC ==
[2018-09-07 17:14] LABS: Albumin 3.9 g/dL (3.80-4.90); Albumin/Globulin Ratio 1.5 (1.60-3.17); Anion Gap 6.8 mmol/L (4.00-12.00); Calcium 9.2 mg/dL (8.7-10.3); Carbon Dioxide 25.2 mmol/L (21.6-31.8); Globulin 2.6 g/dL (1.6-3.3); LDL Cholesterol,Calculated 120.4 mg/dL (0.0-131.0); Potassium 4.7 mmol/L (3.5-5.5); Total Bilirubin 0.6 mg/dL (0.2-1.2); Total Protein 6.5 g/dL (6.2-8.2); VLDL Calculation 28.6 mg/dL (5.00-40.00)
[2018-09-07 21:16] LABS: Hemoglobin A1C 7.3 % (4.0-6.0)
== END ==
LOC: LABWHC1 08:02
PROVIDERS: ATTEND Family Medicine
DX: Z00.00 Encounter for general adult medical examination without abnormal findings (principal); E78.5 Hyperlipidemia, unspecified; E11.9 Type 2 diabetes mellitus without complications
CPT/HCPCS: 36415; 80053; 80061; 83036

== ENCOUNTER → 2019-01-21 | Outpatient (CLI) | payer BC ==
--- NOTE | 2019-01-21 22:52 | MR ---
EXAMINATION TYPE: MR knee RT wo con DATE OF EXAM: 01/21/2019 COMPARISON: X-ray dated 01/09/2019 HISTORY: no prior, right knee pain no injury TECHNIQUE: Multiplanar, multisequence imaging of the right knee is performed without IV contrast. FINDINGS: There is mild narrowing of patellofemoral joint. No erosive changes. Patellar cartilage is maintained . Retinaculum intact. Patellar and quadriceps tendons intact. Small amount of fluid in the suprapatel lar bursa. There is mild amount of diffuse subcutaneous edema. There is severe narrowing the medial compartment of the knee joint. No erosive changes. Hypertrophic spurring is noted. There is a degenerative complex tear involving the posterior horn medial meniscus. Abnormal signal involving the anterior horn of the lateral meniscus noted suspicious for a tear. There is chondromalacia (grade 4) involving the articular cartilage of the medial femoral articular c artilage likely secondary to severe arthritic changes. There is a 8.5 mm area of abnormal signal and loss of articular cartilage at the articular surface of the medial femur. Small area of adjacent luz ow edema involving the femur noted and is likely reactive. Lateral collateral and medial collateral ligaments appear intact. No evidence of ligamentous tear. Posterior cruciate ligament is intact. There is ill-definition the posterior fibers of the ACL which may been the basis of strain or partial tear. No sizable popliteal fossa cyst. IMPRESSION: 1. Post arthritic changes with severe changes of osteoarthritis involving the medial compartment knee joint. Degenerative posterior horn medial meniscal tear noted. 2. There is diffuse mild amount of subcutaneous edema. 3. There is increased signal and ill-definition along the posterior fibers of the ACL which may been the basis of a strain or partial intrasubstance tear. Correlate clinically. 4. Chondromalacia grade 4 medial femoral articular cartilage. 5. Findings suspicious for anterior horn lateral meniscal tear.
== END | disposition home or self-care (01) ==
LOC: RADMRIMAIN 15:29
PROVIDERS: ATTEND Orthopaedic Surgery
DX: S83.241A Other tear of medial meniscus, current injury, right knee, initial encounter (principal); M17.11 Unilateral primary osteoarthritis, right knee; M94.261 Chondromalacia, right knee

== ENCOUNTER → 2019-05-28 | Outpatient (CLI) | payer BC | END | disposition home or self-care (01) | LOC: LABPAT 14:50 | PROVIDERS: ATTEND Orthopaedic Surgery | DX: Z01.818 Encounter for other preprocedural examination (principal); M23.91 Unspecified internal derangement of right knee | CPT/HCPCS: 93005 ==

== ENCOUNTER → 2019-06-06 | Day surgery (SDC) | payer BC ==
[2019-06-04 14:41] VITALS: BMI 36.3
--- NOTE | 2019-06-05 14:47 | HP ---
HISTORY AND PHYSICAL DATE OF SERVICE: 06/06/2019 Leanna Husain is a 64-year-old patient seen with progressive right knee pain. We discussed options for treatment. She elected to proceed with arthroscopy. Consent was obtained. PAST MEDICAL HISTORY: Hypertension, hyperlipidemia, eae-fjxcwpc-ychwrmtke diabetes, gastroesophageal reflux disease. PAST SURGICAL HISTORY: Tubal ligation, cholecystectomy, knee arthroscopy, right shoulder surgery. MEDICATIONS: Glyburide, lisinopril, meloxicam, metoprolol, omeprazole, simvastatin, aspirin. ALLERGIES: CODEINE. SOCIAL HISTORY: She denies tobacco use. PHYSICAL EXAMINATION: Evaluation of the right knee, range of motion is 0 to 130, mild effusion, tenderness of medial jointline, positive medial Tosha's. Ligaments are stable. Hip rotation without pain. Distal neurovascular exam is intact. RADIOGRAPHS: Right knee radiographs reveal moderate osteoarthritis. Right knee MRI revealed meniscal tears and osteoarthritic changes. IMPRESSION: 1. Internal derangement of right knee with meniscal tears. 2. Right knee osteoarthritis. 3. Hyperlipidemia. 4. Dsb-rgdesiw-yrnxsujke diabetes. 5. Gastroesophageal reflux disease. PLAN: Right knee arthroscopy with partial meniscectomy and debridement. MMODL / IJN: [id number] /
[~2019-06-06] MED LIST changes: +BUPIVACAIN-EPI 0.25%-1:200,000 30 ML VIAL SQ ONE; -HEPARIN SODIUM,PORCINE 5,000 UNIT/ML 1 ML VIAL SQ ONE; +HYDROmorphone 0.5 MG/0.5 ML SYRINGE IVP PRN; +HYDROmorphone 1 MG/ML 1 ML SYRINGE IVP ONE; +LACTATED RINGERS 1,000 ML IV SCH; +LIDOCAINE 1% INJ 10MG/ML (20 ML MDV) ONE; +MIDAZOLAM 2 MG/2 ML VIAL ONE; +PROPOFOL 10 MG/ML 20 ML VIAL IV ONE; +SCOPOLAMINE 1.5MG/72HR PATCH TRANSDERM ONE; +SUCCINYLCHOLINE CHLORIDE 100 MG/5 ML SYR IV ONE; +fentaNYL (PF) 50 MCG/ML 2 ML AMP ONE
[2019-06-06 11:41] VITALS: TEMP 97.2
[2019-06-06 11:42] LABS: Glucose,Whole Blood 129 mg/dL (75-99)
--- NOTE | 2019-06-06 13:00 | P.OP ---
Date of Procedure: 06/06/19 Preoperative Diagnosis: Internal derangement right knee Postoperative Diagnosis: 1. Tear medial meniscus right knee 2. Grade 3/4 chondromalacia medial femoral condyle right knee 3. Grade 2 chondromalacia patella right knee 4. Reactive synovitis medial, lateral and suprapatellar compartments right knee Procedure(s) Performed: 1. Arthroscopic partial medial meniscectomy right knee 2. Arthroscopic chondroplasty medial femoral condyle right knee 3. Arthroscopic partial synovectomy medial, lateral and suprapatellar compartments right knee Anesthesia: SHELLYA, local Surgeon: David Hargrove Estimated Blood Loss (ml): 10 Pathology: none sent Condition: stable Disposition: PACU Indications for Procedure: 64-year-old patient seen with progressive right knee pain. After treatment options were discussed, she elected to proceed with arthroscopy. Operative Findings: see description of procedure Description of Procedure: Patient was taken to the operative suite. Patient underwent a general anesthetic by the department of anesthesia. Patient was given preoperative antibiotics. The right lower extremity was placed in a well-padded arthroscopic leg moreno. The right leg was prepped and draped in the normal sterile orthopedic fashion. A lateral parapatellar and suprapatellar incision was made. Trochars were inserted. Arthroscopy was initiated. Suprapatellar pouch revealed diffuse thick reactive synovitis. The patellofemoral joint appeared to articulate congruently. There was grade 2 chondromalacia of the patella, no osteochondral tears were present. The scope was guided into the medial gutter. No loose bodies or plica were identified. The scope was then guided into the medial compartment. A medial parapatellar incision was made. Trocar inserted followed by probe. There was a radial tear posterior medial meniscus. There were grade 3/4 chondromalacia changes of the medial femoral condyle with some diffuse osteochondral flap tears of the medial femoral condyle. There was thick reactive synovitis anteriorly. I performed a partial medial meniscectomy. I performed a chondroplasty of the medial femoral condyle. I performed a partial synovectomy. The residual meniscus was stable. The residual osteochondral surface was stable. There was good decompression of the synovitis. Scope and probe were then guided into the intercondylar notch. Cruciates were identified, probed and found to be stable. The scope and probe were then guided into lateral compartment. There were grade 1/2 chondromalacia changes of the lateral compartment with no osteochondral tears present. There was thick reactive synovitis anteriorly. The lateral meniscus was stable. I performed a partial synovectomy decompressing the reactive synovitis. There was good decompression of the synovitis. The scope was in guided back into the suprapatellar compartment. I introduced a motorized shaver into the suprapatellar compartment. I debrided some piecemeal fragments of meniscus I encountered. I performed a partial synovectomy. Shaver was removed. There was good decompression of the synovitis. I took one more look around the entire knee, no residual debris. Instruments were now removed from the joint. The joint was infiltrated with .25% Marcaine. Steri-Strips were applied to the portal sites. Sterile dressings were applied. The patient was placed into a MITZI hose. No tourniquet was utilized. The patient was awakened, transferred to a bed and taken to recovery stable satisfactory condition.
[2019-06-06 14:31] VITALS: RESP 16
[2019-06-06 15:43] VITALS: BP 129/77; PULSE 59
== END | disposition home or self-care (01) ==
LOC: OR 11:04
PROVIDERS: ATTEND Orthopaedic Surgery
DX: M23.221 Derangement of posterior horn of medial meniscus due to old tear or injury, right knee (principal); M22.41 Chondromalacia patellae, right knee; M65.861 Other synovitis and tenosynovitis, right lower leg; M17.11 Unilateral primary osteoarthritis, right knee; I48.91 Unspecified atrial fibrillation; K21.9 Gastro-esophageal reflux disease without esophagitis; E11.9 Type 2 diabetes mellitus without complications; I10 Essential (primary) hypertension; E78.5 Hyperlipidemia, unspecified; Z90.49 Acquired absence of other specified parts of digestive tract; Z98.51 Tubal ligation status; Z79.82 Long term (current) use of aspirin; Z79.84 Long term (current) use of oral hypoglycemic drugs; Z79.899 Other long term (current) drug therapy; Z88.5 Allergy status to narcotic agent
CPT/HCPCS: 29881; J2250; J1100; J0690; J2405; J2001; J3010; J1170; J0330; J2704

== ENCOUNTER → 2019-07-27 | Outpatient (CLI) | payer BC ==
[2019-07-27 08:38] LABS: Basophils % (A) 0 %; Eosinophils # (A) 0.3 k/uL (0-0.7); Eosinophils % (A) 5 %; HGB 14.1 gm/dL (11.4-16.0); Lymphocytes # (A) 1.7 k/uL (1.0-4.8); Lymphocytes % (A) 26 %; MCH 30.1 pg (25.0-35.0); MCHC 32.8 g/dL (31.0-37.0); MCV 91.7 fL (80.0-100.0); Monocytes # (A) 0.4 k/uL (0-1.0); Monocytes % (A) 5 %; Neutrophils # (A) 4.1 k/uL (1.3-7.7); Neutrophils % (A) 61 %; Platelet Count 318 k/uL (150-450); RBC 4.69 m/uL (3.80-5.40); RDW 12.3 % (11.5-15.5); WBC 6.7 k/uL (3.8-10.6)
[2019-07-27 08:57] LABS: Appearance,Urine Cloudy (Clear); Bacteria,Urine Rare /hpf; Bilirubin,Urine Negative (Negative); Blood,Urine Trace (Negative); Color,Urine Yellow; Glucose,Urine (UA) 4+ (Negative); Ketones,Urine Negative (Negative); Leukocyte Esterase,Urine Large (Negative); Mucus,Urine Rare /hpf; Nitrite,Urine Negative (Negative); Protein,Urine Trace (Negative); RBC,Urine 14 /hpf (0-5); Specific Gravity,Urine 1.022 (1.001-1.035); Squamous Epithelial Cell,Urine 7 /hpf (0-4); Urobilinogen,Urine <2.0 mg/dL (<2.0); WBC,Urine >182 /hpf (0-5)
[2019-07-27 09:11] LABS: Protein/Creatinine Ratio,Urine 0.279
[2019-07-27 10:09] LABS: Erythrocyte Sedimentation Rate 25 mm/hr (0-20)
[2019-07-27 19:04] LABS: African American GFR (CKD) 78.9 (60.0-200.0); Albumin 3.8 g/dL (3.80-4.90); Albumin/Globulin Ratio 1.46 (1.60-3.17); Anion Gap 7.3 mmol/L (4.00-12.00); BUN/Creat Ratio 16.67 Ratio (12.00-20.00); C Reactive Protein 0.9 mg/dL (0.0-0.8); Carbon Dioxide 27.7 mmol/L (21.6-31.8); Chol/HDL Ratio 3.96; Globulin 2.6 g/dL (1.6-3.3); LDL Cholesterol,Calculated 120.4 mg/dL (0.0-131.0); Phosphorus 3.8 mg/dL (2.4-5.1); Potassium 4.4 mmol/L (3.5-5.5); Total Bilirubin 0.7 mg/dL (0.3-1.2); Total Protein 6.4 g/dL (6.2-8.2); VLDL Calculation 21.6 mg/dL (5.00-40.00)
[2019-07-27 19:48] LABS: Hemoglobin A1C 7.7 % (4.0-6.0)
[2019-07-27 21:30] LABS: Urine Creatinine 60.8 mg/dL
[2019-07-29 12:58] LABS: Anti-DNA, DS unit <1.0 IU/mL; DNA Double-Stranded NEGATIVE (NEGATIVE)
== END | disposition home or self-care (01) ==
LOC: LABWHC1 08:06
PROVIDERS: ATTEND Nurse Practitioner Acute Care
DX: E11.22 Type 2 diabetes mellitus with diabetic chronic kidney disease (principal); N18.3 Chronic kidney disease, stage 3 (moderate); E78.5 Hyperlipidemia, unspecified; R21 Rash and other nonspecific skin eruption; M13.0 Polyarthritis, unspecified; Z79.899 Other long term (current) drug therapy
CPT/HCPCS: 36415; 80053; 80061; 81001; 82043; 82306; 82550; 82570; 83036; 83970; 84100; 84156; 84443; 85025; 85652; 86038; 86140; 86225; 86431

== ENCOUNTER → 2019-11-13 | Outpatient (CLI) | payer BC ==
--- NOTE | 2019-11-13 13:49 | US ---
EXAMINATION TYPE: US venous doppler duplex LE LT DATE OF EXAM: 11/13/2019 1:32 PM COMPARISON: NONE CLINICAL HISTORY: R79.89 Elevated D-Dimer. Left leg pain and swelling x 3 days, patient on aspirin SIDE PERFORMED: Left TECHNIQUE: The lower extremity deep venous system is examined utilizing real time linear array sonog brian with graded compression, doppler sonography and color-flow sonography. VESSELS IMAGED: External Iliac Vein (EIV) Common Femoral Vein Deep Femoral Vein Greater Saphenous Vein * Femoral Vein Popliteal Vein Small Saphenous Vein * Proximal Calf Veins (* superficial vessels) Compression images not done from EIV through distal femoral vein, patient unable to tolerate probe pressure Left Leg: Visualized portions appears negative for DVT Grayscale, color doppler, spectral doppler imaging performed of the deep veins of the left lower extr emity. There is normal flow and vascular waveforms. IMPRESSION: Suboptimal study as patient unable to tolerate compression images but no convincing evid ence for acute DVT in the left lower extremity noted.
== END | disposition home or self-care (01) ==
LOC: RADUSWWP 12:43
PROVIDERS: ATTEND Family Medicine
DX: R79.89 Other specified abnormal findings of blood chemistry (principal)

== ENCOUNTER → 2019-11-21 | Outpatient (CLI) | payer BC ==
[2019-11-21 10:28] LABS: Basophils % (A) 0 %; Eosinophils # (A) 0.3 k/uL (0-0.7); Eosinophils % (A) 4 %; HCT 39.8 % (34.0-46.0); HGB 12.8 gm/dL (11.4-16.0); Lymphocytes # (A) 2.1 k/uL (1.0-4.8); Lymphocytes % (A) 29 %; MCH 29.5 pg (25.0-35.0); MCHC 32.2 g/dL (31.0-37.0); MCV 91.6 fL (80.0-100.0); Mean Platelet Volume 7.8; Monocytes # (A) 0.4 k/uL (0-1.0); Monocytes % (A) 6 %; Neutrophils # (A) 4.1 k/uL (1.3-7.7); Neutrophils % (A) 57 %; Platelet Count 309 k/uL (150-450); RBC 4.35 m/uL (3.80-5.40); RDW 12.8 % (11.5-15.5); WBC 7.2 k/uL (3.8-10.6)
[2019-11-21 10:59] LABS: Protein/Creatinine Ratio,Urine 0.031
[2019-11-21 11:12] LABS: Appearance,Urine Cloudy (Clear); Bacteria,Urine Occasional /hpf; Bilirubin,Urine Negative (Negative); Blood,Urine Negative (Negative); Color,Urine Yellow; Glucose,Urine (UA) Negative (Negative); Ketones,Urine Negative (Negative); Leukocyte Esterase,Urine Moderate (Negative); Mucus,Urine Many /hpf; Nitrite,Urine Negative (Negative); PH, Urine 5.5 (5.0-8.0); Protein,Urine Trace (Negative); RBC,Urine 2 /hpf (0-5); Specific Gravity,Urine 1.029 (1.001-1.035); Squamous Epithelial Cell,Urine 5 /hpf (0-4); WBC,Urine 13 /hpf (0-5)
[2019-11-21 18:27] LABS: African American GFR (CKD) 90.9 (60.0-200.0); Albumin 3.7 g/dL (3.80-4.90); Albumin/Globulin Ratio 1.32 (1.60-3.17); Anion Gap 5.7 mmol/L (4.00-12.00); BUN/Creat Ratio 17.5 Ratio (12.00-20.00); Calcium 9.2 mg/dL (8.7-10.3); Carbon Dioxide 29.3 mmol/L (21.6-31.8); Globulin 2.8 g/dL (1.6-3.3); Non-African American GFR(CKD) 78.5 (60.0-200.0); Phosphorus 3.4 mg/dL (2.4-5.1); Potassium 4.8 mmol/L (3.5-5.5); Total Bilirubin 0.9 mg/dL (0.3-1.2); Total Protein 6.5 g/dL (6.2-8.2)
[2019-11-21 18:37] LABS: Urine Creatinine 205.4 mg/dL
== END | disposition home or self-care (01) ==
LOC: LABWHC1 08:52
PROVIDERS: ATTEND Nurse Practitioner Acute Care
DX: N18.3 Chronic kidney disease, stage 3 (moderate) (principal)
CPT/HCPCS: 36415; 80053; 81001; 82043; 82306; 82570; 83970; 84100; 84156; 85025

== ENCOUNTER → 2020-04-15 | Outpatient (CLI) | payer BC ==
[2020-04-15 11:32] LABS: Basophils % (A) 1 %; Eosinophils # (A) 0.3 k/uL (0-0.7); Eosinophils % (A) 4 %; HCT 40.4 % (34.0-46.0); HGB 13.5 gm/dL (11.4-16.0); Lymphocytes # (A) 2.1 k/uL (1.0-4.8); Lymphocytes % (A) 30 %; MCH 31.5 pg (25.0-35.0); MCHC 33.3 g/dL (31.0-37.0); MCV 94.5 fL (80.0-100.0); Mean Platelet Volume 7.7; Monocytes # (A) 0.4 k/uL (0-1.0); Monocytes % (A) 5 %; Neutrophils # (A) 4.1 k/uL (1.3-7.7); Neutrophils % (A) 58 %; Platelet Count 281 k/uL (150-450); RBC 4.27 m/uL (3.80-5.40); RDW 12.2 % (11.5-15.5); WBC 7.1 k/uL (3.8-10.6)
[2020-04-15 11:38] LABS: Appearance,Urine Clear (Clear); Bacteria,Urine Occasional /hpf; Bilirubin,Urine Negative (Negative); Blood,Urine Negative (Negative); Color,Urine Yellow; Glucose,Urine (UA) Negative (Negative); Ketones,Urine Negative (Negative); Leukocyte Esterase,Urine Trace (Negative); Mucus,Urine Rare /hpf; Nitrite,Urine Negative (Negative); PH, Urine 5.5 (5.0-8.0); Protein,Urine Negative (Negative); RBC,Urine 3 /hpf (0-5); Specific Gravity,Urine 1.023 (1.001-1.035); Squamous Epithelial Cell,Urine 3 /hpf (0-4); Urobilinogen,Urine <2.0 mg/dL (<2.0); WBC,Urine 9 /hpf (0-5)
[2020-04-15 11:41] LABS: Protein/Creatinine Ratio,Urine 0.076
[2020-04-15 17:19] LABS: African American GFR (CKD) 90.3 (60.0-200.0); Albumin 3.9 g/dL (3.80-4.90); Albumin/Globulin Ratio 1.44 (1.60-3.17); Anion Gap 8.6 mmol/L (4.00-12.00); BUN/Creat Ratio 22.5 Ratio (12.00-20.00); Calcium 9.2 mg/dL (8.7-10.3); Carbon Dioxide 25.4 mmol/L (21.6-31.8); Chol/HDL Ratio 3.42; Globulin 2.7 g/dL (1.6-3.3); LDL Cholesterol,Calculated 108.4 mg/dL (0.0-131.0); Non-African American GFR(CKD) 77.9 (60.0-200.0); Phosphorus 3.5 mg/dL (2.4-5.1); Potassium 4.4 mmol/L (3.5-5.5); Total Bilirubin 0.7 mg/dL (0.3-1.2); Total Protein 6.6 g/dL (6.2-8.2); VLDL Calculation 19.6 mg/dL (5.00-40.00)
[2020-04-15 17:26] LABS: Urine Creatinine 92.8 mg/dL
[2020-04-15 18:58] LABS: Hemoglobin A1C 8.2 % (4.0-6.0)
== END | disposition home or self-care (01) ==
LOC: LABWHC1 09:57
PROVIDERS: ATTEND Internal Medicine Endocrinology, Diabetes & Metabolism
DX: E11.65 Type 2 diabetes mellitus with hyperglycemia (principal); E11.22 Type 2 diabetes mellitus with diabetic chronic kidney disease; N18.30 Chronic kidney disease, stage 3 unspecified
CPT/HCPCS: 36415; 80053; 80061; 81001; 82043; 82306; 82570; 83036; 83970; 84100; 84156; 84443; 85025

== ENCOUNTER → 2020-06-08 | Outpatient (CLI) | payer BC ==
--- NOTE | 2020-06-08 17:38 | US ---
EXAMINATION TYPE: US kidneys/renal and bladder DATE OF EXAM: 06/08/2020 COMPARISON: NONE CLINICAL HISTORY: R10.31 Right flank pain. Pt states right flank pain EXAM MEASUREMENTS: Right Kidney: 9.9 x 4.7 x 4.9 cm Left Kidney: 9.4 x 5.3 x 4.9 cm Right Kidney: No evidence of hydro Left Kidney: No evidence of hydro Bladder: STAT exam, pt not given prep to fill bladder, not fully distended Bilateral Jets seen: No Attempted to call Dr's office at time of exam, no answer There is no evidence for hydronephrosis at this point in time. No nephrolithiasis is seen. No gus s are identified. Cortical medullary differentiation is maintained. The urinary bladder is nondisten ded IMPRESSION: Undistended urinary bladder. No evident hydronephrosis laterally
== END | disposition home or self-care (01) ==
LOC: RADUSWWP 16:05
PROVIDERS: ATTEND Family Medicine
DX: R10.31 Right lower quadrant pain (principal)
CPT/HCPCS: 76770

== ENCOUNTER 2020-09-09 14:20 | Emergency (ER) | payer BC ==
--- NOTE | 2020-09-09 16:25 | ED ---
Nausea/Vomiting/Diarrhea HPI <Teresita Swenson - Last Filed: 09/09/20 16:23> <Alberto Mata - Last Filed: 09/09/20 18:32> - General Stated complaint: Covid+/nausea/vomiting - History of Present Illness Initial comments: Patient is a 65-year-old female presenting to emergency Department with complaints of nausea, vomiting, diarrhea, and abdominal pain for the past 4 days. She was diagnosed with Covid last week, 7 days ago. She denies any chest pain, no shortness of breath. No cough. She has been having occasional headaches. Unable to keep down much liquid or no foods. No fevers. Abdominal pain rated 6/10. (Teresita Swenson) - Related Data Home Medications Medication Instructions Recorded Confirmed Oxybutynin Chloride 5 mg PO TID 09/30/14 06/06/19 Simvastatin [Zocor] 40 mg PO HS 10/25/16 06/06/19 Metoprolol Tartrate [Lopressor] 12.5 mg PO BID 09/14/17 06/06/19 Ertugliflozin Pidolate [Steglatro] 5 mg PO QAM 06/04/19 06/06/19 Omeprazole 20 mg PO QAM 06/04/19 06/06/19 Previous Rx's Medication Instructions Recorded traMADol HCl [Ultram] 50 mg PO Q6H PRN #12 tab 06/06/19 Allergies Allergy/AdvReac Type Severity Reaction Status Date / Time codeine AdvReac Nausea & Verified 09/09/20 16:26 Vomiting Review of Systems ROS Other: All systems not noted in ROS Statement are negative. <Teresita Swenson - Last Filed: 09/09/20 16:23> ROS Other: All systems not noted in ROS Statement are negative. <Alberto Mata - Last Filed: 09/09/20 18:32> ROS Statement: Those systems with pertinent positive or pertinent negative responses have been documented in the HPI. 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 History of Any Multi-Drug Resistant Organisms: None Reported Past Surgical History: Cholecystectomy, Heart Catheterization, Hernia Repair, Orthopedic Surgery, Tubal Ligation Additional Past Surgical History / Comment(s): , rt shoulder rotator cuff, left foot surgery, angel luis knee arthroscopy Past Anesthesia/Blood Transfusion Reactions: Previous Problems w/ Anesthesia, Motion Sickness Additional Past Anesthesia/Blood Transfusion Reaction / Comment(s): " TAKES LONGER WAKING UP Additional Past Alcohol Use History / Comment(s): STARTED SMOKING AT AGE 17 quit smoking 1999,SMOKED 1PPS - Past Family History Father Family Medical History: Diabetes Mellitus, Hypertension Mother Family Medical History: CVA/TIA, Diabetes Mellitus, Hypertension Additional Family Medical History / Comment(s): Triple bypass, brain aneurysym. <Teresita Swenson L - Last Filed: 09/09/20 16:23> General Exam Limitations: no limitations General appearance: alert, in no apparent distress <Teresita Swenson - Last Filed: 09/09/20 16:23> Head exam: Present: atraumatic, normocephalic Eye exam: Present: normal appearance, PERRL ENT exam: Present: mucous membranes dry Neck exam: Present: normal inspection. Absent: tenderness Respiratory exam: Present: normal lung sounds bilaterally. Absent: respiratory distress, wheezes, rales Cardiovascular Exam: Present: regular rate, normal rhythm GI/Abdominal exam: Present: soft, tenderness (Minimal generalized tenderness). Absent: distended, guarding, rebound Extremities exam: Present: normal inspection, normal capillary refill. Absent: pedal edema Neurological exam: Present: alert, oriented X3, CN II-XII intact. Absent: motor sensory deficit Psychiatric exam: Present: normal affect, normal mood Skin exam: Present: warm, dry, intact, normal color. Absent: cyanosis, diaphoretic <Alberto Mata N - Last Filed: 09/09/20 18:32> Course Vital Signs 09/09/20 16:23 Temperature 99.9 F H Pulse Rate 88 Respiratory 20 Rate Blood Pressure 102/72 O2 Sat by Pulse 97 Oximetry Medical Decision Making - Lab Data Result diagrams: 09/09/20 17:06 09/09/20 17:06 <Alberto Mata - Last Filed: 09/09/20 18:32> - Medical Decision Making 65-year-old female with coronavirus with nausea vomiting diarrhea. Patient well-appearing with stable vitals. No significant abdominal tenderness, no r ebound or guarding. No respiratory issues. Only complaint is vomiting and diarrhea. She's given symptom control and IV fluids. Her laboratory testing is showing some hemoconcentration hemoglobin 16, mild transaminitis otherwise unremarkable. Patient feeling better on reevaluation. She will attempt oral hydration at home and return with worsening or changing symptoms including any respiratory issues. (Alberto Mata) - Lab Data Lab Results 09/09/20 09/09/20 09/09/20 Range/Units 17:06 17:06 17:06 WBC 5.8 (3.8-10.6) k/uL RBC 5.06 (3.80-5.40) m/uL Hgb 16.1 H (11.4-16.0) gm/dL Hct 45.1 (34.0-46.0) % MCV 89.2 (80.0-100.0) fL MCH 31.8 (25.0-35.0) pg MCHC 35.6 (31.0-37.0) g/dL RDW 12.0 (11.5-15.5) % Plt Count 215 (150-450) k/uL MPV 8.4 Neutrophils % 67 % Lymphocytes % 21 % Monocytes % 8 % Eosinophils % 1 % Basophils % 1 % Neutrophils # 3.8 (1.3-7.7) k/uL Lymphocytes # 1.2 (1.0-4.8) k/uL Monocytes # 0.5 (0-1.0) k/uL Eosinophils # 0.1 (0-0.7) k/uL Basophils # 0.0 (0-0.2) k/uL PT 10.1 (9.0-12.0) sec INR 0.9 (<1.2) APTT 22.1 (22.0-30.0) sec Sodium 138 (137-145) mmol/L Potassium 3.9 (3.5-5.1) mmol/L Chloride 102 (98-107) mmol/L Carbon Dioxide 27 (22-30) mmol/L Anion Gap 9 mmol/L BUN 16 (7-17) mg/dL Creatinine 0.74 (0.52-1.04) mg/dL Est GFR (CKD-EPI)AfAm >90 (>60 ml/min/1.73 sqM) Est GFR (CKD-EPI)NonAf 87 (>60 ml/min/1.73 sqM) Glucose 182 H (74-99) mg/dL Plasma Lactic Acid Moe (0.7-2.0) mmol/L Calcium 8.9 (8.4-10.2) mg/dL Magnesium 2.0 (1.6-2.3) mg/dL Total Bilirubin 0.7 (0.2-1.3) mg/dL AST 43 H (14-36) U/L ALT 35 H (4-34) U/L Alkaline Phosphatase 125 (38-126) U/L Total Protein 7.2 (6.3-8.2) g/dL Albumin 3.7 (3.5-5.0) g/dL Lipase 46 (23-300) U/L 09/09/20 Range/Units 17:06 WBC (3.8-10.6) k/uL RBC (3.80-5.40) m/uL Hgb (11.4-16.0) gm/dL Hct (34.0-46.0) % MCV (80.0-100.0) fL MCH (25.0-35.0) pg MCHC (31.0-37.0) g/dL RDW (11.5-15.5) % Plt Count (150-450) k/uL MPV Neutrophils % % Lymphocytes % % Monocytes % % Eosinophils % % Basophils % % Neutrophils # (1.3-7.7) k/uL Lymphocytes # (1.0-4.8) k/uL Monocytes # (0-1.0) k/uL Eosinophils # (0-0.7) k/uL Basophils # (0-0.2) k/uL PT (9.0-12.0) sec INR (<1.2) APTT (22.0-30.0) sec Sodium (137-145) mmol/L Potassium (3.5-5.1) mmol/L Chloride (98-107) mmol/L Carbon Dioxide (22-30) mmol/L Anion Gap mmol/L BUN (7-17) mg/dL Creatinine (0.52-1.04) mg/dL Est GFR (CKD-EPI)AfAm (>60 ml/min/1.73 sqM) Est GFR (CKD-EPI)NonAf (>60 ml/min/1.73 sqM) Glucose (74-99) mg/dL Plasma Lactic Acid Moe 1.4 (0.7-2.0) mmol/L Calcium (8.4-10.2) mg/dL Magnesium (1.6-2.3) mg/dL Total Bilirubin (0.2-1.3) mg/dL AST (14-36) U/L ALT (4-34) U/L Alkaline Phosphatase (38-126) U/L Total Protein (6.3-8.2) g/dL Albumin (3.5-5.0) g/dL Lipase (23-300) U/L Disposition <Teresita Swenson - Last Filed: 09/09/20 16:23> Is patient prescribed a controlled substance at d/c from ED?: No Time of Disposition: 18:32 <Alberto Mata - Last Filed: 09/09/20 18:32> Clinical Impression: Nausea and vomiting, COVID-19 Disposition: HOME SELF-CARE Condition: Good Instructions (If sedation given, give patient instructions): Acute Nausea and Vomiting (ED), Coronavirus Disease 2019 (COVID-19) Referrals: Dianna Burgos MD [Primary Care Provider] - 1-2 days
[2020-09-09] MEDS ORDERED: SODIUM CHLORIDE 0.9% 1,000 ML IV ONE (16:39)
[2020-09-09] MEDS ORDERED: ONDANSETRON 4 MG/2 ML VIAL IVP STA (16:39)
[2020-09-09] MEDS ORDERED: MORPHINE SULFATE 4 MG/ML SYRINGE IVP STA (16:39)
[2020-09-09 17:16] LABS: Basophils % (A) 1 %; Eosinophils # (A) 0.1 k/uL (0-0.7); Eosinophils % (A) 1 %; HCT 45.1 % (34.0-46.0); HGB 16.1 gm/dL (11.4-16.0); Lymphocytes # (A) 1.2 k/uL (1.0-4.8); Lymphocytes % (A) 21 %; MCH 31.8 pg (25.0-35.0); MCHC 35.6 g/dL (31.0-37.0); MCV 89.2 fL (80.0-100.0); Mean Platelet Volume 8.4; Monocytes # (A) 0.5 k/uL (0-1.0); Monocytes % (A) 8 %; Neutrophils # (A) 3.8 k/uL (1.3-7.7); Neutrophils % (A) 67 %; Platelet Count 215 k/uL (150-450); RBC 5.06 m/uL (3.80-5.40); WBC 5.8 k/uL (3.8-10.6)
[2020-09-09 17:27] LABS: ALT 35 U/L (4-34); AST 43 U/L (14-36); African American GFR (CKD) >90 (>60 ml/min/1.73 sqM); Albumin 3.7 g/dL (3.5-5.0); Alkaline Phosphatase 125 U/L (38-126); Anion Gap 9 mmol/L; Blood Urea Nitrogen 16 mg/dL (7-17); Calcium 8.9 mg/dL (8.4-10.2); Carbon Dioxide 27 mmol/L (22-30); Chloride 102 mmol/L (98-107); Glucose 182 mg/dL (74-99); Lipase 46 U/L (23-300); Non-African American GFR(CKD) 87 (>60 ml/min/1.73 sqM); Potassium 3.9 mmol/L (3.5-5.1); Sodium 138 mmol/L (137-145); Total Bilirubin 0.7 mg/dL (0.2-1.3); Total Protein 7.2 g/dL (6.3-8.2)
[2020-09-09 17:28] LABS: INR 0.9 (<1.2); Partial Thromboplastin Time 22.1 sec (22.0-30.0); Prothrombin Time 10.1 sec (9.0-12.0)
[2020-09-09 19:00] VITALS: BP 118/67; PULSE 73; RESP 18; TEMP 98.2
[2020-09-09 19:38] LABS: Appearance,Urine Cloudy (Clear); Bacteria,Urine Occasional /hpf; Bilirubin,Urine Negative (Negative); Blood,Urine Negative (Negative); Color,Urine Yellow; Glucose,Urine (UA) Negative (Negative); Ketones,Urine 1+ (Negative); Leukocyte Esterase,Urine Negative (Negative); Mucus,Urine Occasional /hpf; Nitrite,Urine Negative (Negative); Protein,Urine 1+ (Negative); RBC,Urine 2 /hpf (0-5); Squamous Epithelial Cell,Urine 3 /hpf (0-4); Urobilinogen,Urine <2.0 mg/dL (<2.0); WBC,Urine 6 /hpf (0-5)
== END 2020-09-09 19:20 | disposition home or self-care (01) ==
LOC: EC 14:20
DX: U07.1 COVID-19 (principal); E11.9 Type 2 diabetes mellitus without complications; E78.5 Hyperlipidemia, unspecified; G47.30 Sleep apnea, unspecified; Z79.899 Other long term (current) drug therapy; Z88.5 Allergy status to narcotic agent; Z87.891 Personal history of nicotine dependence; Z99.89 Dependence on other enabling machines and devices
CPT/HCPCS: 36415; 80053; 83605; 83690; 83735; 85025; 85610; 85730; 81001; 99284; 96374; 96375; 96361; J2405

== ENCOUNTER → 2020-11-09 | Outpatient (CLI) | payer BC | END | disposition home or self-care (01) | LOC: LABPAT 14:18 | PROVIDERS: ATTEND Orthopaedic Surgery | DX: Z01.812 Encounter for preprocedural laboratory examination (principal) | CPT/HCPCS: 87070 ==

== ENCOUNTER 2020-11-30 05:47 | Observation (INO) | payer BC ==
[2020-11-26 10:34] VITALS: BMI 35.5
--- NOTE | 2020-11-29 09:13 | HP ---
HISTORY AND PHYSICAL REASON FOR ADMISSION: Surgery scheduled for 11/30/2020. HISTORY OF PRESENT ILLNESS: Leanna Husain is a 65-year-old patient seen with symptomatic right knee osteoarthritis. We discussed options for treatment. She elected to proceed with right total knee arthroplasty. Consent was obtained. PAST MEDICAL HISTORY: Hypertension, hyperlipidemia. PAST SURGICAL HISTORY: Knee arthroscopy, shoulder arthroscopy, cholecystectomy, tubal ligation. MEDICATIONS: Metoprolol, simvastatin, glyburide. ALLERGIES: CODEINE. SOCIAL HISTORY: She denies tobacco use. PHYSICAL EVALUATION OF THE RIGHT KNEE: Range of motion is -2/3 to 115. Mild effusion. Tenderness along the medial and lateral joint lines. Positive medial and lateral Tosha's. Ligaments stable. Hip rotation without pain. Distal neurovascular exam is intact. RADIOGRAPHS: Radiographs of the right knee reveal severe osteoarthritic changes. IMPRESSION: 1. Right knee osteoarthritis. 2. Hypertension. 3. Hyperlipidemia. 4. Aci-xgmpxdu-prphyrkir diabetes. PLAN: Right total knee arthroplasty. Surgery is 11/30/2020. MMODL / IJN: [id number] /
[~2020-11-30 05:47] MED LIST changes: +ACETAMINOPHEN TAB 500 MG TAB PO PRN; -BUPIVACAIN-EPI 0.25%-1:200,000 30 ML VIAL SQ ONE; -DEXAMETHASONE SOD PHOSPHATE 10 MG/ML 1 ML VIAL IV ONE; -HYDROmorphone 0.5 MG/0.5 ML SYRINGE IVP PRN; -HYDROmorphone 1 MG/ML 1 ML SYRINGE IVP ONE; -LACTATED RINGERS 1,000 ML IV SCH; -LIDOCAINE 1% INJ 10MG/ML (20 ML MDV) ONE; +MELOXICAM 7.5 MG TAB PO PRN; -MIDAZOLAM 2 MG/2 ML VIAL IV PRN; -MIDAZOLAM 2 MG/2 ML VIAL ONE; -ONDANSETRON 4 MG/2 ML VIAL IVP ONE; -PROPOFOL 10 MG/ML 20 ML VIAL IV ONE; +ROPIVACAINE/EPI/CLONIDINE/KET 50 ML SYRINGE MISCELLANE PRN; -SCOPOLAMINE 1.5MG/72HR PATCH TRANSDERM ONE; -SUCCINYLCHOLINE CHLORIDE 100 MG/5 ML SYR IV ONE; +TRANEXAMIC ACID 1,000 MG in SODIUM CHLORIDE 0.9% 100 ML IVPB PRN; -fentaNYL (PF) 50 MCG/ML 2 ML AMP ONE
[2020-11-30] MEDS ORDERED: HYDROmorphone 0.5 MG/0.5 ML SYRINGE IVP PRN ×2 (05:56→09:33)
[2020-11-30] MEDS ORDERED: MIDAZOLAM 2 MG/2 ML VIAL IV PRN (05:56)
[2020-11-30] MEDS ORDERED: LIDOCAINE 1% (10MG/ML) FOR IV START INTRADERMA PRN (05:56)
[2020-11-30 06:50] LABS: Glucose,Whole Blood 173 mg/dL (75-99)
[2020-11-30] MEDS: ONDANSETRON 4 MG/2 ML VIAL IVP ONE ×2 (07:00→14:15)
[2020-11-30] MEDS: DEXAMETHASONE SOD PHOSPHATE 4 MG/ML 1 ML VIAL IV ONE ×2 (07:00→17:28)
[2020-11-30] MEDS: LACTATED RINGERS 1,000 ML IV SCH ×2 (07:01→07:35)
[2020-11-30] MEDS ORDERED: fentaNYL (PF) 50 MCG/ML 2 ML AMP IVP ONE (07:25)
[2020-11-30] MEDS ORDERED: PROPOFOL 10 MG/ML 20 ML VIAL IV ONE (07:38)
[2020-11-30] MEDS ORDERED: fentaNYL (PF) 50 MCG/ML 2 ML AMP ONE (07:38)
[2020-11-30] MEDS ORDERED: TRANEXAMIC ACID 1,000 MG/10 ML VIAL ONE (07:38)
[2020-11-30] MEDS ORDERED: ROPIVACAINE 5 MG/ML 30 ML VIAL ONE (07:38)
[2020-11-30] MEDS ORDERED: LIDOCAINE 1% INJ 10MG/ML (20 ML MDV) ONE (07:38)
[2020-11-30] MEDS ORDERED: HYDROmorphone (PF) 1 MG/ML ONE (07:38)
[2020-11-30] MEDS ORDERED: MIDAZOLAM 2 MG/2 ML VIAL ONE (07:38)
[2020-11-30] MEDS ORDERED: SODIUM CHLORIDE 0.9% 100 ML BAG ONE (07:38)
[2020-11-30] MEDS ORDERED: ceFAZolin 1,000 MG in SODIUM CHLORIDE 0.9% 1,000 ML IRRIGATION ONE (08:21)
[2020-11-30] MEDS ORDERED: LACTATED RINGERS 1,000 ML IV ONE ×2 (09:09→09:33)
[2020-11-30] MEDS ORDERED: ONDANSETRON 4 MG/2 ML VIAL IVP PRN (09:33)
[2020-11-30] MEDS ORDERED: HYDROmorphone 0.2 MG/1 ML SYRINGE IVP PRN (09:33)
[2020-11-30] MEDS ORDERED: NALOXONE 0.4 MG/ML 1 ML VIAL IV PRN (09:33)
[2020-11-30] MEDS ORDERED: HYDROcodone/APAP 5-325MG 1 EACH TAB PO PRN (09:33)
[2020-11-30] MEDS ORDERED: HYDROmorphone 1 MG/ML 1 ML SYRINGE IVP PRN (09:33)
[2020-11-30] MEDS ORDERED: HYDROcodone/APAP 7.5-325MG 1 EACH TAB PO PRN (09:33)
--- NOTE | 2020-11-30 09:33 | P.OP ---
Date of Procedure: 11/30/20 Preoperative Diagnosis: Right knee osteoarthritis Postoperative Diagnosis: Right knee osteoarthritis Procedure(s) Performed: Right total knee arthroplasty Implants: 1. Depuy attune size 5 right cruciate retaining cemented femur 2. Depuy attune size 5 fixed bearing cemented tibial baseplate 3. Depuy attune size 5 fixed bearing cruciate retaining 5 mm polyethylene tibial insert 4. Depuy attune 38 mm all polyethylene cemented patella Anesthesia: GETA, regional (Adductor canal catheter, I pack block) Surgeon: David Hargrove Dielectric Testing Machine Operator #1: Rahat Cruz Estimated Blood Loss (ml): 50 Pathology: other (Bone) Condition: stable Disposition: PACU Indications for Procedure: 65-year-old patient seen with symptomatic right knee osteoarthritis. After having treatment options discussed, she elected to proceed with total knee arthroplasty. Operative Findings: See description of procedure Description of Procedure: Patient was taken to the operative suite after having an adductor canal catheter placed by the department of anesthesia. Patient underwent a general anesthetic by the department of anesthesia. Patient was given preoperative IV intake antibiotics and TXA. A well-padded tourniquet was placed about the right lower extremity. The lower extremity was then prepped and draped in the normal sterile orthopedic fashion. The extremity was elevated, a tourniquet was insufflated to 300. A standard anterior incision was made sharply through skin. Dissection was taken down through the subcutaneous soft tissues down to the extensor mechanism. A medial arthrotomy was performed, patella was everted and knee was flexed. There was advanced osteoarthritis noted. I introduced my distal intramedullary femoral drill. I then introduced the distal femoral cu tting jig. Stevenson HOWE secured the cutting jig with 2 pins. I held retractors in position while Stevenson HOWE performed the distal femoral resection through the guide area we now removed her distal femoral cutting guide. We now placed our 4-in-1 femoral cutting block and positioned and it was secured with 2 pins by Stevenson HOWE while I held the block in position. The distal femoral finishing was now completed. A proximal tibial cutting guide was positioned. I held the guide in the appropriate position with both hands well Stevenson HOWE inserted stabilizing pins into the guide. Proximal tibial cut was made. We now placed a trial femoral component into position, along with an appropriate size tibial tray and insert. We now took the knee through range of motion and had full extension good flexion and good overall soft tissue balance noted. The patella was everted and stabilized with 2 towel clips held by Stevenson HOWE while I performed a flush with patellar quad tendon utilizing a fresh sawblade. We templated the patella, appropriate drill holes were made. An appropriate trial patella was positioned, knee was taken through full range of motion with the patella tracking very nicely. The trial patella was removed. Drill holes were made through the femoral component. All trial components were removed after marking off the appropriate rotation of the tibia. Retractors were now positioned along the proximal tibia. An appropriate keel punch was made with the appropriate size tibial guide by myself on Stevenson HOWE assisted by holding retractors. At this point appropriate size implants were chosen and opened. The joint was irrigated copiously with pulse lavage mechanical irrigation. The posterior capsule was infiltrated with local analgesic. The wound was irrigated with pulse lavage mechanical irrigation. We mixed antibiotic methylmethacrylate. We placed the knee into flexion. We placed multiple retractors assisted by Stevenson HOWE to expose the proximal tibia. Once the methyl methacrylate was ready, the tibial component was cemented into place removing any excess methylmethacrylate form by both myself and Stevenson HOWE. The femoral component was cemented into place removing the removing any excess methylmethacrylate performed by both myself and Stevenson HOWE. We then inserted the appropriate size polyethylene tibial insert. We made sure that it was locked into position. We took the knee into full extension, and then back in a flexion making sure we had removed any excess methylmethacrylate. The patellar component was then cemented down and secured with clamp. Excess methylmethacrylate removed. We kept the knee in full extension, patellar clamp in position until methylmethacrylate had hardened. Once it had hardened the patellar clamp was removed. The knee was taken through full range of motion. The patella tracked nicely. There was good soft tissue balancing. The tourniquet was now released. Additional hemostasis was achieved via electrocautery. A second gram of TXA was given. The wound again was irrigated with pulse lavage mechanical irrigation. The superficial soft tissues were infiltrated local analgesic. The extensor mechanism was repaired with Ethibond. We checked the repair with range of motion and it was stable. The subcutaneous soft tissues were repaired with Vicryl in layers. The skin was approximated with pernio/Dermabond. Sterile dressings were applied followed by loose web roll and Artemio bandage. The patient was transferred to a bed, and taken to recovery in stable and satisfactory condition. Stevenson HOWE assisted with this complex procedure.
[2020-11-30] MEDS ORDERED: KETOROLAC 15 MG/ML 1 ML VIAL IVP ONE (09:47)
[2020-11-30] MEDS ORDERED: ROPIVACAINE 0.2%-NS ON-Q PUMP 2 MG/ML EACH MISCELLANE ONE (09:48)
[2020-11-30] MEDS ORDERED: hydrALAZINE HCL 20 MG/ML 1 ML VIAL IV ONE (10:15)
--- NOTE | 2020-11-30 10:40 | XR ---
EXAMINATION TYPE: XR knee limited RT DATE OF EXAM: 11/30/2020 CLINICAL HISTORY: Right knee pain and arthritis status post total knee replacement. TECHNIQUE: Portable AP and crosstable lateral views of the right knee are obtained immediately posto peratively. COMPARISON: Outside right knee x-ray August 28, 2020 FINDINGS: Metallic hardware from total right knee arthroplasty is seen and appears satisfactory in a lignment and position. There is evidence of recent surgery with diffuse subcutaneous gas and soft ti ssue swelling noted. IMPRESSION: METALLIC HARDWARE FROM TOTAL RIGHT KNEE ARTHROPLASTY IS SATISFACTORY IN ALIGNMENT.
[2020-11-30 10:46] LABS: Glucose,Whole Blood 244 mg/dL (75-99)
[2020-11-30] MEDS ORDERED: INSULIN ASPART (NovoLOG) 100 UNIT/ML VIAL SQ ONE (10:56)
[2020-11-30] MEDS ORDERED: ROPIVACAINE 0.2%-NS ON-Q PUMP 1,090 MG, EMPTY PAIN BALL 1 EACH MISCELLANE PRN (13:39)
--- NOTE | 2020-11-30 13:44 | P.ANPRN ---
Procedure Note - Anesthesia - Nerve Block Performed Right Adductor Canal Infusion Time Out Performed: Yes (0709) Date of Procedure: 11/30/20 Procedure Start Time: 07: Procedure Stop Time: 07:24 Location of Patient: PreOp Indication: Acute Post-Operative Pain, Dx/Pain Location (Right Knee), Requested by Surgeon Specifically requested for management of pain by DrShan: David Hargrove Sedation Type: Sedate with meaningful contact maintained Preparation: Sterile Prep, Sterile Dressing Position: Supine Catheter Depth at Skin (cm): 6 Catheter: Indwelling Needle Types: On-Q Needle Gauge: 18 Ultrasound used to visualize needle placement: Yes Ultrasound used to observe medication spread: Yes Injectate: 0.5% Ropivacaine (see comment for volume) (15 cc) Blood Aspirated: No Pain Paresthesia on Injection Noted: No Resistance on Injection: Normal Image Stored and Saved: Yes Events: Uneventful and Well Tolerated Right iPack Single Time Out Performed: Yes Date of Procedure: 11/30/20 Procedure Start Time: : Procedure Stop Time: 07:23 Location of Patient: PreOp Indication: Acute Post-Operative Pain, Dx/Pain Location (Right Knee), Requested by Surgeon Specifically requested for management of pain by DrShan: David Hargrove Sedation Type: Sedate with meaningful contact maintained Preparation: Sterile Prep Position: Left Lateral Catheter: None Needle Gauge: 21 Ultrasound used to visualize needle placement: Yes Ultrasound used to observe medication spread: Yes Injectate: 0.5% Ropivacaine (see comment for volume) (15 cc) Blood Aspirated: No Pain Paresthesia on Injection Noted: No Resistance on Injection: Normal Image Stored and Saved: Yes Events: Uneventful and Well Tolerated
[2020-11-30] MEDS ORDERED: METOCLOPRAMIDE 5 MG/ML 2 ML VIAL ONE (14:45)
[2020-11-30] MEDS ORDERED: METOCLOPRAMIDE 5 MG/ML 2 ML VIAL IVP ONE (14:48)
[2020-11-30 15:05] LABS: Glucose,Whole Blood 229 mg/dL (75-99)
[2020-11-30] MEDS: traMADol 50 MG TAB PO SCH ×3 (17:28→22:22)
[2020-11-30] MEDS ORDERED: PANTOPRAZOLE 40 MG TABLET PO PRN (21:21)
[2020-11-30] MEDS ORDERED: INSULIN ASPART (NovoLOG) 100 UNIT/ML VIAL SQ SCH (21:21)
[2020-11-30 21:28] LABS: Glucose,Whole Blood 198 mg/dL (75-99)
[2020-11-30] MEDS ORDERED: MAGNESIUM OXIDE 400 MG TAB PO STA (21:30)
[2020-11-30] MEDS ORDERED: ATORVASTATIN 40 MG TAB PO STA (21:31)
[2020-11-30] MEDS ORDERED: OXYBUTYNIN CHLORIDE 5 MG TAB PO STA (21:31)
[2020-11-30] MEDS: METOPROLOL TARTRATE 25 MG TAB PO SCH (22:22)
[2020-11-30] MEDS: INSULIN ASPART (NovoLOG) 100 UNIT/ML VIAL SQ SCH (22:23)
--- NOTE | 2020-11-30 23:59 | P.CONS ---
History of Present Illness - Reason for Consult Consult date: 11/30/20 Postoperative care, hyperglycemia and diabetes mellitus Requesting physician: David Hargrove - Chief Complaint Hyperglycemia - History of Present Illness 65-year-old female with diabetes mellitus, hyperlipidemia, JOSUE Patient comes in for scheduled elective right total knee arthroplasty due to severe advanced osteoarthritis of the right knee patient tolerated procedure well denies any observed immediate postoperative complications denied any chest pain shortness of breath fevers chills she reports that pain is well tolerated. She otherwise reports that she is in good health she denies any abdominal pain nausea vomiting she tolerated by mouth intake. She is currently hyperglycemic postoperatively and she already had small meal but denies any blurry vision abdominal pain nausea or vomiting, denies any upper respiratory infection symptoms, denies any urinary changes Review of Systems Pertinent positives as noted in HPI. All other systems were reviewed and are negative 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 History of Any Multi-Drug Resistant Organisms: None Reported Past Surgical History: Cholecystectomy, Heart Catheterization, Hernia Repair, Orthopedic Surgery, Tubal Ligation Additional Past Surgical History / Comment(s): , rt shoulder rotator cuff, left foot surgery, angel luis knee arthroscopy Past Anesthesia/Blood Transfusion Reactions: Previous Problems w/ Anesthesia, Motion Sickness Additional Past Anesthesia/Blood Transfusion Reaction / Comm: " TAKES LONGER WAKING UP Past Psychological History: No Psychological Hx Reported Smoking Status: Former smoker Past Alcohol Use History: None Reported Additional Past Alcohol Use History / Comment(s): STARTED SMOKING AT AGE 17 quit smoking 1999,SMOKED 1PPS Past Drug Use History: None Reported - Past Family History Father Family Medical History: Diabetes Mellitus, Hypertension Brother(s) Family Medical History: Cancer Mother Family Medical History: CVA/TIA, Diabetes Mellitus, Hypertension Additional Family Medical History / Comment(s): Triple bypass, brain aneurysym. Medications and Allergies Home Medications Medication Instructions Recorded Confirmed Type Oxybutynin Chloride 5 mg PO BID 09/30/14 11/26/20 History Simvastatin [Zocor] 40 mg PO W/SUPPER 10/25/16 11/26/20 History Metoprolol Tartrate [Lopressor] 25 mg PO BID 09/14/17 11/26/20 History Omeprazole 20 mg PO BID PRN 06/04/19 11/26/20 History traMADol HCl [Ultram] 50 mg PO Q6H PRN #12 tab 06/06/19 11/26/20 Rx Aspirin [Adult Low Dose Aspirin EC] 81 mg PO DAILY 11/26/20 11/26/20 History Ibuprofen [Motrin] 800 mg PO DIRECTED PRN 11/26/20 11/26/20 History Magnesium 500 mg PO DAILY 11/26/20 11/26/20 History metFORMIN HCL [Glucophage] 500 mg PO BID 11/26/20 11/26/20 History Allergies Allergy/AdvReac Type Severity Reaction Status Date / Time codeine AdvReac Nausea & Verified 11/26/20 10:16 Vomiting Physical Exam Vitals: Vital Signs Temp Pulse Resp BP Pulse Ox 11/30/20 17:36 97.7 F 71 18 153/80 99 11/30/20 16:45 75 16 138/75 96 11/30/20 15:45 77 16 123/62 96 11/30/20 14:45 74 16 136/79 93 L 11/30/20 14:15 74 16 148/80 92 L 11/30/20 13:45 78 16 136/77 97 11/30/20 13:00 89 16 133/77 97 11/30/20 12:20 76 16 142/76 96 11/30/20 12:05 77 16 124/78 96 11/30/20 11:50 81 16 141/83 96 11/30/20 11:35 82 16 145/77 96 11/30/20 11:00 79 16 145/67 96 11/30/20 10:45 78 16 160/62 96 11/30/20 10:30 81 16 164/75 96 11/30/20 10:15 78 16 177/72 96 11/30/20 10:00 77 16 184/69 93 L 11/30/20 09:44 97.4 F L 80 16 184/81 93 L 11/30/20 07:29 62 18 146/92 98 11/30/20 07:01 98 F 79 20 195/79 97 Intake and Output 11/30/20 11/30/20 11/30/20 06:59 14:59 22:59 Intake Total 2201 Output Total 50 Balance 2151 Intake: IV 1 Output: Estimated Blood Loss 50 Other: # Voids 1 Weight 99.2 kg 99.2 kg Constitutional: No acute distress, conversant, pleasant Eyes: Anicteric sclerae, moist conjunctiva, Pupils equal round reactive to light ENMT: NC/AT Oropharynx clear, no erythema, or exudates Neck: Supple, FROM, no masses, or JVD No carotid bruits No thyromegaly Lungs: Clear to auscultation Clear to percussion Normal respiratory effort, no accessory muscle use Cardiovascular: Heart regular in rate and rhythm, No murmurs, gallops, or rubs No peripheral edema Abdominal: Soft Nontender, no guarding, rebound or rigidity Abdomen moving with respiration Normoactive bowel sounds No hepatomegaly, No splenomegaly No palpable mass No abdominal wall hernia noted Skin: Normal temperature, tone, texture, turgor No induration No subcutaneous nodules No rash, lesions No ulcers Extremities: No digital cyanosis No clubbing Pedal pulses intact and symmetrical Radial pulses intact and symmetrical No calf tenderness Psychiatric: Alert and oriented to person, place and time Appropriate affect fair judgement Neuro Muscles Strength 5/5 in all 4 extremities (limited over right lower extremity postoperatively) Sensation to light touch grossly present throughout Cranial nerves II-XII grossly intact No focal sensory deficits Lymphatics: no palpable cervical or supraclavicular , or inguinal lymph nodes Results Labs: Abnormal Lab Results - Last 24 Hours (Table) 11/30/20 11/30/20 11/30/20 Range/Units 06:39 10:45 15:01 POC Glucose (mg/dL) 173 H 244 H 229 H (75-99) mg/dL Assessment and Plan Assessment: Hyperglycemia or diabetes mellitus Hold oral hypoglycemic agents Start patient on insulin sliding scale Consistent carbohydrate diet Monitor blood sugar Severe right knee osteoarthritis status post right total knee arthroplasty In controlling DVT prophylaxis per primary team Hyperlipidemia resume statin Obstructive sleep apnea encourage patient to use CPAP patient however she does not tolerate and she did not bring with her Follow-up on CBC and renal function postoperatively Patient is full code Thank you for allowing us to participate in the care of this patient. Do not hesitate to contact us with questions. Someone can be reached from the [facility] hospitalist group at all hours of the day at [phone].
[2020-12-01] MEDS: LACTATED RINGERS 1,000 ML IV SCH (03:59)
[2020-12-01] MEDS: HYDROcodone/APAP 7.5-325MG 1 EACH TAB PO PRN ×3 (05:29→17:46)
[2020-12-01 07:13] LABS: Glucose,Whole Blood 163 mg/dL (75-99)
[2020-12-01] MEDS: INSULIN ASPART (NovoLOG) 100 UNIT/ML VIAL SQ SCH ×4 (07:33→20:48)
[2020-12-01] MEDS: METOPROLOL TARTRATE 25 MG TAB PO SCH ×2 (07:35→20:48)
[2020-12-01] MEDS: OXYBUTYNIN CHLORIDE 5 MG TAB PO SCH ×2 (07:35→20:48)
[2020-12-01] MEDS: traMADol 50 MG TAB PO SCH ×4 (07:36→20:47)
--- NOTE | 2020-12-01 10:07 | P.PN ---
Progress Note - Text Patient was seen at 6:30 AM in the morning. Postoperative day # 1 status post total knee arthroplasty, on adductor canal perineural catheter placed for postoperative analgesia. Ropivacaine 0.2% 8 mL per hour through ON-Q pump continuous infusion. Pain control is okay even though still has some pain in the night. On visual analog scale 5/10 Patient is taking PRN oral pain medications. Catheter site: Looks Ok. There is no erythema or tenderness. Continue with the current pain management plan and will follow.
--- NOTE | 2020-12-01 10:11 | P.PN ---
Subjective Progress Note Date: 12/01/20 Patient reports feeling dizzy this morning. She denies any headache or nausea. No acute events overnight. She reported drinking a good amount of water. Objective - Vital Signs Vital signs: Vital Signs Temp 97.9 F 12/01/20 08:00 Pulse 66 12/01/20 08:00 Resp 16 12/01/20 08:00 BP 115/66 12/01/20 08:00 Pulse Ox 94 L 12/01/20 08:00 Intake & Output 11/30/20 12/01/20 12/01/20 18:59 06:59 18:59 Intake Total 220 Output Total 50 Balance 2150 Weight 99.2 kg Intake: IV 2200 Output: Estimated Blood Loss 50 Other: Voiding Method Toilet # Voids 0 2 - Exam General: The patient is awake and alert, in no distress Eye: there is normal conjunctiva bilaterally. Neck: The neck is supple, there is no JVD. Cardiovascular: Normal S1-S2, no S3-S4, no murmurs. Respiratory: Lungs clear to auscultation bilaterally Gastrointestinal: Abdomen is soft, nontender Musculoskeletal: There is no pedal edema. Neurological:. Speech is normal. Skin: Skin is warm and dry - Labs Labs: Abnormal Lab Results - Last 24 Hours (Table) 11/30/20 11/30/20 11/30/20 Range/Units 10:45 15:01 21:26 POC Glucose (mg/dL) 244 H 229 H 198 H (75-99) mg/dL 12/01/20 Range/Units 07:04 POC Glucose (mg/dL) 163 H (75-99) mg/dL Assessment and Plan Assessment: 1. Postoperative day #1 status post total right knee arthroplasty, postoperative care, pain control, and DVT prophylaxis per primary team 2. Type 2 diabetes, home dose of metformin on hold. Continue sliding scale insulin 3. Chronic medical problems: Hyperlipidemia, obstructive sleep apnea on CPAP at night, obesity. Today, I reviewed her medication list. Continue current regimen. Encouraged patient to increase oral hydration. I would order lab work including CBC and BMP.
--- NOTE | 2020-12-01 10:18 | P.PN ---
Subjective Progress Note Date: 12/01/20 Principal diagnosis: status post right total knee arthroplasty patient was evaluated today at bedside, she is resting in her hospital chair. She states the pain is controlled currently. She denies any headaches, lightheadedness, chest pain or shortness of breath. While working with physical therapy, she did become quite dizzy. Objective - Vital Signs Vital signs: Vital Signs Temp 97.9 F 12/01/20 08:00 Pulse 66 12/01/20 08:00 Resp 16 12/01/20 08:00 BP 115/66 12/01/20 08:00 Pulse Ox 94 L 12/01/20 08:00 Intake & Output 11/30/20 12/01/20 12/01/20 18:59 06:59 18:59 Intake Total 2200 Output Total 50 Balance 2150 Weight 99.2 kg Intake: IV 2200 Output: Estimated Blood Loss 50 Other: Voiding Method Toilet # Voids 0 2 - Exam Right lower extremity: Incision is clean, dry, and intact. The exofin fusion tape is in good condition. There is minimal soft tissue swelling and ecchymosis surrounding the medial and lateral aspects of the incision. Calf is soft, no tenderness with palpation. Plantar flexion, dorsiflexion, EHL, FHL are intact. Sensory exam to light touch throughout the extremity is intact, dorsal pedis pulses 2+. - Labs Labs: Abnormal Lab Results - Last 24 Hours (Table) 11/30/20 11/30/20 11/30/20 Range/Units 10:45 15:01 21:26 POC Glucose (mg/dL) 244 H 229 H 198 H (75-99) mg/dL 12/01/20 Range/Units 07:04 POC Glucose (mg/dL) 163 H (75-99) mg/dL Assessment and Plan Assessment: Status post right total knee arthroplasty Plan: Pain control, continue with current medication GI and DVT prophylaxis, continue with current medication Wound care instructions were discussed Icing and elevating techniques discussed Medical recommendations Discharge planning: The dizziness doesn't improve, anticipated discharge home today Time with Patient: Less than 30
[2020-12-01 10:49] LABS: Potassium 4.4 mmol/L (3.5-5.1)
[2020-12-01 10:50] LABS: African American GFR (CKD) 87 (>60 ml/min/1.73 sqM); Anion Gap 6 mmol/L; Blood Urea Nitrogen 18 mg/dL (7-17); Calcium 8.9 mg/dL (8.4-10.2); Carbon Dioxide 30 mmol/L (22-30); Chloride 102 mmol/L (98-107); Glucose 151 mg/dL (74-99); Non-African American GFR(CKD) 75 (>60 ml/min/1.73 sqM); Sodium 138 mmol/L (137-145)
[2020-12-01 10:51] LABS: Basophils % (A) 0 %; Eosinophils # (A) 0.1 k/uL (0-0.7); Eosinophils % (A) 1 %; HCT 33.6 % (34.0-46.0); HGB 11.6 gm/dL (11.4-16.0); Lymphocytes # (A) 1.7 k/uL (1.0-4.8); Lymphocytes % (A) 16 %; MCH 31.6 pg (25.0-35.0); MCHC 34.6 g/dL (31.0-37.0); MCV 91.1 fL (80.0-100.0); Mean Platelet Volume 7.5; Monocytes # (A) 0.7 k/uL (0-1.0); Monocytes % (A) 6 %; Neutrophils # (A) 8.1 k/uL (1.3-7.7); Neutrophils % (A) 75 %; Platelet Count 276 k/uL (150-450); RBC 3.69 m/uL (3.80-5.40); RDW 13.3 % (11.5-15.5); WBC 10.7 k/uL (3.8-10.6)
[2020-12-01 11:37] LABS: Glucose,Whole Blood 139 mg/dL (75-99)
[2020-12-01 16:27] LABS: Glucose,Whole Blood 232 mg/dL (75-99)
[2020-12-01] MEDS ORDERED: ATORVASTATIN 20 MG TAB PO SCH (17:30)
[2020-12-01 19:44] VITALS: RESP 18
[2020-12-01 20:34] LABS: Glucose,Whole Blood 202 mg/dL (75-99)
[2020-12-02] MEDS: HYDROcodone/APAP 7.5-325MG 1 EACH TAB PO PRN ×2 (01:39→08:12)
[2020-12-02 06:52] LABS: Glucose,Whole Blood 169 mg/dL (75-99)
[2020-12-02] MEDS: LACTATED RINGERS 1,000 ML IV SCH (07:12)
[2020-12-02] MEDS: INSULIN ASPART (NovoLOG) 100 UNIT/ML VIAL SQ SCH (08:03)
[2020-12-02] MEDS: METOPROLOL TARTRATE 25 MG TAB PO SCH (08:16)
[2020-12-02] MEDS: OXYBUTYNIN CHLORIDE 5 MG TAB PO SCH (08:16)
[2020-12-02 08:27] VITALS: BP 128/70; PULSE 69; TEMP 97.9
--- NOTE | 2020-12-02 10:02 | P.PN ---
Subjective Progress Note Date: 12/02/20 Principal diagnosis: status post right total knee arthroplasty patient was evaluated today at bedside, she is resting in her hospital chair. Patient states that her pain is better controlled today. She still continues to have nausea and vomiting after the pain medication. She denies any headaches, lightheadedness, chest pain or shortness of breath. Objective - Vital Signs Vital signs: Vital Signs Temp 97.9 F 12/02/20 08:00 Pulse 69 12/02/20 08:00 Resp 18 12/02/20 08:00 BP 128/70 12/02/20 08:00 Pulse Ox 96 12/02/20 08:00 Intake & Output 12/01/20 12/02/20 12/02/20 18:59 06:59 18:59 Other: Voiding Method Toilet Toilet # Voids 3 2 - Exam Right lower extremity: Incision is clean, dry, and intact. The exofin fusion tape is in good condition. There is minimal soft tissue swelling and ecchymosis surrounding the medial and lateral aspects of the incision. Calf is soft, no tenderness with palpation. Plantar flexion, dorsiflexion, EHL, FHL are intact. Sensory exam to light touch throughout the extremity is intact, dorsal pedis pulses 2+. - Labs CBC & Chem 7: 12/01/20 10:24 12/01/20 10:24 Labs: Abnormal Lab Results - Last 24 Hours (Table) 12/01/20 12/01/20 12/01/20 Range/Units 10:24 10:24 11:24 WBC 10.7 H (3.8-10.6) k/uL RBC 3.69 L (3.80-5.40) m/uL Hct 33.6 L (34.0-46.0) % Neutrophils # 8.1 H (1.3-7.7) k/uL BUN 18 H (7-17) mg/dL Glucose 151 H (74-99) mg/dL POC Glucose (mg/dL) 139 H (75-99) mg/dL 12/01/20 12/01/20 12/02/20 Range/Units 16:25 20:33 06:51 WBC (3.8-10.6) k/uL RBC (3.80-5.40) m/uL Hct (34.0-46.0) % Neutrophils # (1.3-7.7) k/uL BUN (7-17) mg/dL Glucose (74-99) mg/dL POC Glucose (mg/dL) 232 H 202 H 169 H (75-99) mg/dL Assessment and Plan Assessment: Status post right total knee arthroplasty Plan: Pain control, plan for discharge on [facility] 7.5 mg/325 mg. Explained to patient she should only take half to one every 6-8 hours. We'll also prescribe Zofran for nausea. GI and DVT prophylaxis, aspirin 81 mg twice a day Wound care instructions were discussed Icing and elevating techniques discussed Medical recommendations Discharge planning: Plan for discharge home today Time with Patient: Less than 30
--- NOTE | 2020-12-02 10:09 | P.DS ---
Providers Date of admission: 11/30/2020 Expected date of discharge: 12/02/20 Attending physician: David Hargrove Consults: 11/30/20 12:52 Consult Physician Routine Consulting Provider: Dianna Burgos Reason/Comments: Medical Management Do you want consulting provider notified?: Yes Primary care physician: Dianna Burgos Hospital Course: Date of admission: 11/30/2020 Date of discharge: 12/03/2019 Admission diagnosis: Status post right total knee arthroplasty Discharge diagnosis: Same Attending physician: Dr. Hargrove Surgical procedures: Right total knee arthroplasty Brief history: Patient is a 65-year-old female with a history of with progressive primary right knee osteoarthritis. At this point patient has failed conservative treatment measures and has opted to proceed with a elective right total knee arthroplasty. Hospital course: Details of patient's surgery can be found in operative report. Patient tolerated the procedure well and was subsequently transported to orthopedic floor. Patient's orthopeidc and medical care was provided daily. Patient had daily laboratory tests performed for evaluation of overall blood counts. Patient had daily physical therapy to include strengthening range of motion as well as education with walker ambulation. Patient was treated with Lovenox for their postoperative DVT prophylaxis during their inpatient stay. Patient was noted to have a relatively uneventful postoperative course. Patient reported satisfactory pain control with oral pain medications by postoperative day 0. Patient showed satisfactory progress with physical therapy. Patient moved steadily through the program and had no difficulty meeting the goals by postoperative day 2. Given patient's otherwise satisfactory course and having met physical therapy goals, plan is to discharge patient home on postoperative day 2. Discharge condition/disposition: Patient will be discharged home in stable condition. Discharge medications: Instructions are given on resumption of patient's normal daily medications per primary care recommendation, in addition patient will be prescribed [place] 7.5 mg/325 mg, Colace 100 mg, aspirin 81 mg, zofran 8mg. Discharge instructions: 1. Wound care and infection precautions, keep incision dry and covered while showering, no lotions, creams, moisturizers. No soaking, tubs, pools, hottubs. Do not scrub over the incision. 2. Weight-bear as tolerated with walker / cane until follow-up. 3. Ice and elevate when necessary. Do not exceed 20 minutes per hour with ice pack. 4. Utilize compression sleeve until seen at first follow up appointment. 5. Visiting nursing care. 6. Home physical therapy including home CPM. 7. Pain meds and anticoagulants per prescription. 8. Pain medication has potential to cause constipation. Increase oral fluid and fiber intake. Contact primary care provider if you have not had a bowel movement within 48 hours after discharge 9. No anti-inflammatory medication until discussed at first post operative visit, this including Motrin, Aleve, Mobic, Diclofenac. 10. Follow up in office at 2 weeks postop with Stevenson Cruz PA-C/Jonathan Tamayo 11. Follow up with your primary care doctor 7-10 days after discharge. 12. Contact [facility] with any questions, . Procedures: Right total knee arthroplasty Patient Condition at Discharge: Good Plan - Discharge Summary Discharge Rx Participant: Yes New Discharge Prescriptions: New Docusate [Colace] 100 mg PO DAILY #30 capsule HYDROcodone/APAP 7.5-325MG [[place] 7.5] 1 each PO Q6HR PRN #28 tab PRN Reason: Pain Aspirin [Adult Low Dose Aspirin EC] 81 mg PO BID #60 tablet. ondansetron HCL [Zofran] 8 mg PO Q12HR #30 tab Continue Oxybutynin Chloride 5 mg PO BID Simvastatin [Zocor] 40 mg PO W/SUPPER Metoprolol Tartrate [Lopressor] 25 mg PO BID Omeprazole 20 mg PO BID PRN PRN Reason: reflux metFORMIN HCL [Glucophage] 500 mg PO BID Magnesium 500 mg PO DAILY No Action traMADol HCl [Ultram] 50 mg PO Q6H PRN #12 tab PRN Reason: Pain Ibuprofen [Motrin] 800 mg PO DIRECTED PRN PRN Reason: Pain Discharge Medication List Oxybutynin Chloride 5 mg PO BID 09/30/14 [History] Simvastatin [Zocor] 40 mg PO W/SUPPER 10/25/16 [History] Metoprolol Tartrate [Lopressor] 25 mg PO BID 09/14/17 [History] Omeprazole 20 mg PO BID PRN 06/04/19 [History] traMADol HCl [Ultram] 50 mg PO Q6H PRN #12 tab 06/06/19 [Rx] Ibuprofen [Motrin] 800 mg PO DIRECTED PRN 11/26/20 [History] Magnesium 500 mg PO DAILY 11/26/20 [History] metFORMIN HCL [Glucophage] 500 mg PO BID 11/26/20 [History] Aspirin [Adult Low Dose Aspirin EC] 81 mg PO BID #60 tablet. 12/02/20 [Rx] Docusate [Colace] 100 mg PO DAILY #30 capsule 12/02/20 [Rx] HYDROcodone/APAP 7.5-325MG [[place] 7.5] 1 each PO Q6HR PRN #28 tab 12/02/20 [Rx] ondansetron HCL [Zofran] 8 mg PO Q12HR #30 tab 12/02/20 [Rx] Follow up Appointment(s)/Referral(s): [facility] [NON-STAFF] - (Continuous Passive Motion (CPM) knee machine - Please call once home to arrange delivery of CPM. ) Jorge Sw[facility], [NON-STAFF] - As Needed Rahat Cruz, PAC [PHYSICIAN SEISMOGRAPH OPERATOR HELPER] - 2 Weeks Patient Instructions/Handouts: *Sur[facility] - On-Q Pain Pump Discharge Instructions, *[facility] - (Anesthesia) Discharge Instructions Outpatient Surgery, How to Use an Incentive Spirometer (DC), Precautions after Total Joint Replacement Surgery (DC), Knee Replacement (DC) Activity/Diet/Wound Care/Special Instructions: Orthopedic Discharge Instructions: 1. Wound care and infection precautions, keep incision dry and covered while showering, no lotions, creams, moisturizers. No soaking, pools, hot tubs. Do not scrub over incision. 2. Weight-bear as tolerated with walker / cane until follow-up. 3. Ice and elevate when necessary. Do not exceed 20 minutes per hour with ice pack. 4. Utilize compression sleeve until seen at first follow up appointment. 5. Pain meds and anticoagulants per prescription. 6. Pain medication has potential to cause constipation. Increase oral fluid and fiber intake. Contact primary care provider if you have not had a bowel movement within 48 hours after discharge. 7. No anti-inflammatory medication until discussed at first post operative visit, this including Motrin, Aleve, Mobic, Diclofenac 8. Follow up in office at 2 weeks postop with Stevenson Cruz PA-C/Jonathan Ruiz PA-C 9. Follow up with your primary care doctor 7-10 days after discharge. 10. Contact [facility] with any questions, . Discharge Disposition: HOME WITH HOME HEALTH SERVICES
[2020-12-02] MEDS: traMADol 50 MG TAB PO SCH (10:39)
[2020-12-02 11:21] LABS: Glucose,Whole Blood 155 mg/dL (75-99)
--- NOTE | 2020-12-02 14:48 | P.PN ---
Subjective Progress Note Date: 12/02/20 (delayed charting seen at 0930) Principal diagnosis: knee pain Patient is a 65-year-old female with diabetes mellitus type 2, dyslipidemia, obstructive sleep apnea on CPAP at night admitted for elective right total knee arthroplasty. She did well postoperatively but had some dizziness. Patient seen and examined at bedside. Dizziness is resolved. She feels much better than yesterday. Pain is tolerable. General: non toxic, no distress, appears at stated age Derm: warm, dry Head: atraumatic, normocephalic, symmetric Eyes: EOMI, no lid lag, anicteric sclera Mouth: no lip lesion, mucus membranes moist Cardiovascular: S1S2 reg, no murmur, positive posterior tibial pulse bilateral, Lungs: CTA bilateral, no rhonchi, no rales , no accessory muscle use Ext: Dressing in place over right knee, no gross muscle atrophy, trace edema, no contractures Neuro: CN II-XI grossly intact, no focal neuro deficits Psych: Alert, oriented, appropriate affect 65-year-old female status post right total knee arthroplasty Diabetes mellitus type 2 -Resume metformin at home -Continue sliding scale insulin while in hospital Dyslipidemia -Resume statin at home Obesity with BMI 35.3 -Outpatient structured weight loss Dizziness, resolved Patient is medically optimized for discharge at the discretion of orthopedics -Home med reconciliation has been addressed Thank you for allowing us to participate in the care of this pleasant patient. Do not hesitate to contact us with questions. Someone can be reached from the [facility] hospitalist group all hours of the day at [phone] or via perfect serve. Objective - Vital Signs Vital signs: Vital Signs Temp 97.9 F 12/02/20 08:00 Pulse 69 12/02/20 08:00 Resp 18 12/02/20 08:00 BP 128/70 12/02/20 08:00 Pulse Ox 96 12/02/20 08:00 Intake & Output 12/01/20 12/02/20 12/02/20 18:59 06:59 18:59 Other: Voiding Method Toilet Toilet # Voids 3 2 - Labs CBC & Chem 7: 12/01/20 10:24 12/01/20 10:24 Labs: Abnormal Lab Results - Last 24 Hours (Table) 12/01/20 12/01/20 12/02/20 Range/Units 16:25 20:33 06:51 POC Glucose (mg/dL) 232 H 202 H 169 H (75-99) mg/dL 12/02/20 Range/Units 11:19 POC Glucose (mg/dL) 155 H (75-99) mg/dL
== END 2020-12-02 12:11 ==
LOC: OR 05:47 → 4SSUR 17:17 → OR 12-01 12:48 → 4SSUR 12-02 10:39
PROVIDERS: ADMIT Orthopaedic Surgery; ATTEND Orthopaedic Surgery
DX: M17.11 Unilateral primary osteoarthritis, right knee (principal); E11.65 Type 2 diabetes mellitus with hyperglycemia; I12.9 Hypertensive chronic kidney disease with stage 1 through stage 4 chronic kidney disease, or unspecified chronic kidney disease; E11.22 Type 2 diabetes mellitus with diabetic chronic kidney disease; N18.30 Chronic kidney disease, stage 3 unspecified; G47.33 Obstructive sleep apnea (adult) (pediatric); I25.10 Atherosclerotic heart disease of native coronary artery without angina pectoris; E78.5 Hyperlipidemia, unspecified; I48.91 Unspecified atrial fibrillation; L40.9 Psoriasis, unspecified; I87.393 Chronic venous hypertension (idiopathic) with other complications of bilateral lower extremity; K21.9 Gastro-esophageal reflux disease without esophagitis; E21.3 Hyperparathyroidism, unspecified; E11.40 Type 2 diabetes mellitus with diabetic neuropathy, unspecified; I83.10 Varicose veins of unspecified lower extremity with inflammation; E55.9 Vitamin D deficiency, unspecified; E78.00 Pure hypercholesterolemia, unspecified; E66.01 Morbid (severe) obesity due to excess calories; Z68.35 Body mass index [BMI] 35.0-35.9, adult; Z79.82 Long term (current) use of aspirin; Z79.84 Long term (current) use of oral hypoglycemic drugs; Z79.899 Other long term (current) drug therapy; Z88.5 Allergy status to narcotic agent; Z90.49 Acquired absence of other specified parts of digestive tract; Z98.51 Tubal ligation status; Z98.890 Other specified postprocedural states; Z87.891 Personal history of nicotine dependence; Z82.49 Family history of ischemic heart disease and other diseases of the circulatory system; Z83.3 Family history of diabetes mellitus; Z82.3 Family history of stroke; Z80.9 Family history of malignant neoplasm, unspecified
CPT/HCPCS: 97116; 97161; 64999; 64448; 76942; 80048; 85025; 88300; 73560; 27447; G0378 ×2; C1776; C1713; J2250; J0360; J1100; J2765; J0690 ×3; J2405 ×2; J2001; J3010; J1170 ×2; J2795 ×2; J1885; J2704

== ENCOUNTER → 2021-02-01 | Outpatient (CLI) | payer BC | END | disposition home or self-care (01) | LOC: RADMAMWWP 12:34 | PROVIDERS: ATTEND Family Medicine | DX: Z53.9 Procedure and treatment not carried out, unspecified reason (principal) ==

== ENCOUNTER → 2022-11-23 | Outpatient (CLI) | payer MEDICARE ==
--- NOTE | 2022-11-23 09:47 | US ---
EXAMINATION TYPE: US abdomen complete DATE OF EXAM: 11/23/2022 COMPARISON: Renal ultrasound 06/08/2020 CLINICAL INDICATION: Female, 67 years old with history of R10.11 RUQ PAIN, R10.12 LUQ PAIN; Epigastri c pain, cholecystectomy TECHNIQUE: Multiple sonographic images of the abdomen are obtained. FINDINGS: EXAM MEASUREMENTS: Liver Length: 18.4 cm Gallbladder Wall: Surgically absent CBD: 0.6 cm Spleen: 11.1 cm Right Kidney: 10.3 x 4.2 x 4.1 cm Left Kidney: 10.0 x 5.4 x 4.9 cm MERCHANDISE PRESENTATION MANAGER NOTES: Technical limitations due to patient's body habitus and large amount of overlyin g bowel content Pancreas: Obscured by bowel gas Liver: limited evaluation, attenuating, unable to penetrate Gallbladder: Surgically absent CBD: appears wnl Spleen: appears wnl Right Kidney: no evidence of hydronephrosis Left Kidney: no evidence of hydronephrosis Upper IVC: wnl Abd Aorta: Obscured by overlying bowel gas The liver is diffusely hyperattenuating with difficult penetration. This limits evaluation for masses . Within these limitations no gross evidence for mass. The intrahepatic portion of the IVC is within normal limits. The abdominal aorta is obscured by overlying bowel gas. The gallbladder is surgically absent. Common bile duct is unremarkable. The pancreas is obscured by overlying bowel gas. The spl een is unremarkable. Kidneys are symmetric and free of hydronephrosis. No renal lesions are seen. IMPRESSION: Limited examination due to patient's body habitus and overlying bowel gas. 1. No acute process within these limitations. 2. Hepatic steatosis. 3. Postcholecystectomy changes.
== END | disposition home or self-care (01) ==
LOC: RADUSWWP 08:56
PROVIDERS: ATTEND Family Medicine
DX: K76.0 Fatty (change of) liver, not elsewhere classified (principal); K91.5 Postcholecystectomy syndrome
CPT/HCPCS: 76700

== ENCOUNTER → 2023-02-14 | Outpatient (CLI) | payer MEDICARE ==
--- NOTE | 2023-02-14 09:47 | BD ---
EXAMINATION TYPE: Axial Bone Density DATE OF EXAM: 02/14/2023 CLINICAL HISTORY: 68 years old Female. ICD-10 CODE: Z78.0ASYMPTOMATIC MENOPAUSAL STAT Height: 64.4 Weight: 228 FRAX RISK QUESTIONS: History of Fracture in Adulthood: yes Secondary Osteoporosis: yes 3. Menopause before 45: yes. 45 RISK FACTORS HISTORY OF: hx of broken foot as an adult Postmenopausal woman: yes, at 45 Lost more than 2 inches in height since high school: yes Hyperparathyroidism: no Adrenal Insufficiency: no MEDICATIONS: Additional Medications: bp meds, Ozempic, diabetic meds, reflux meds, cholesterol meds, vit d, Additional History: a-fib, renal condition, diabetic, reflux, cholesterol, hypertension, EXAM MEASUREMENTS: Bone mineral densitometry was performed using the [employer] System. Bone mineral density as measured about the Lumbar spine is: ----- L1-L4(G/cm2): 1.202 T Score Values are as follows: ----- L1: 0.2 ----- L2: -0.8 ----- L3: 0.5 ----- L4: 0.5 ----- L1-L4: 0.2 Z Score Values are as follows: ----- L1: 0.6 ----- L2: -0.4 ----- L3: 0.9 ----- L4: 1.0 ----- L1-L4: 0.6 Bone mineral density is her first dexa study a [facility]. Bone mineral density about the R hip (g/cm2): 0.959 Bone mineral density about the L hip (g/cm2): 0.981 T Score values are as follows: -----R Neck: -1.0 -----L Neck: -0.9 -----R Total: -0.4 -----L Total: -0.2 Z Score values are as follows: -----R Neck: -0.2 -----L Neck: -0.1 -----R Total: 0.1 -----L Total: 0.3 Bone mineral density is her first bone density study at [facility]. FRAX%s: The graph provided illustrates a 12.3% chance for a major osteoporotic fx and a 0.9% chance f or the hips probability for fx in 10 years time. IMPRESSION: Normal (Values between +1 and -1 indicate normal bone mass). Consider repeating this study in 5 year s or sooner if there is some new clinical indication. NOTE: T-SCORE=SD OF THE YOUNG ADULT MEAN.
--- NOTE | 2023-02-19 23:35 | MM ---
Reason for Exam: Screening (asymptomatic). Last mammogram was performed 8 year(s) and 3 month(s) ago. Risk Values: Albertina 5 year model risk: 1.1%. NCI Lifetime model risk: 3.8%. Prior Study Comparison: 05/09/2012 Left Diagnostic Mammogram, [facility]. 01/01/2013 Left Diagnostic Mammogram, [facility]. 11/06/2014 Bilateral Screening Mammogram, [facility]. Tissue Density: There are scattered fibroglandular densities. Findings: Analyzed By CAD. Benign bilateral vascular calcifications are present. There is no suspicious group of microcalcifications or new suspicious mass in either breast. Overall Assessment: Negative, BI-RAD 1 Management: Screening Mammogram of both breasts in 1 year. . Patient should continue monthly self-breast exams. A clinical breast exam by your physician is recommended on an annual basis. This exam should not preclude additional follow-up of suspicious palpable abnormalities. Note on Albertina scores and lifetime risk: 1. A Albertina score greater than 3% is considered moderate risk. If this is the case, consider specialist referral to assess eligibility for a risk reducing agent. 2. If overall lifetime risk for the development of breast cancer is 20% or higher, the patient may qualify for future screening with alternating mammogram and breast MRI. Electronically signed and approved by: Odessa Allison M.D. Radiologist
== END | disposition home or self-care (01) ==
LOC: RADMAMWWP 08:16
PROVIDERS: ATTEND Family Medicine
DX: Z12.31 Encounter for screening mammogram for malignant neoplasm of breast (principal); M85.89 Other specified disorders of bone density and structure, multiple sites; E11.9 Type 2 diabetes mellitus without complications; I10 Essential (primary) hypertension; I48.91 Unspecified atrial fibrillation; K21.9 Gastro-esophageal reflux disease without esophagitis; Z78.0 Asymptomatic menopausal state
CPT/HCPCS: 77063; 77067; 77080

== ENCOUNTER 2024-05-03 14:47 | Emergency (ER) | payer BC, MEDICARE, OTHER ==
[2024-05-03 15:09] VITALS: BP 152/76; PULSE 71; RESP 18; TEMP 97.5
--- NOTE | 2024-05-03 16:00 | XR ---
EXAMINATION TYPE: XR knee complete RT DATE OF EXAM: 05/03/2024 3:56 PM COMPARISON: 11/30/2020. CLINICAL INDICATION: Female, 69 years old with history of Fall, lateral/inferior tenderness; [facility] TECHNIQUE: XR knee complete RT 3 views submitted. FINDINGS: Status post total knee arthroplasty changes with hardware in appropriate alignment and in tact. No evidence of fracture. There is soft tissue swelling in the subcutaneous tissues. IMPRESSION: Soft tissue swelling around the knee otherwise Status post total knee arthroplasty changes with hardw are intact and appropriate alignment. No fractures identified. [facility], , 05/03/2024 3:58 PM
--- NOTE | 2024-05-03 16:24 | ED ---
Lower Extremity Injury HPI - General Chief Complaint: Extremity Injury, Lower Stated Complaint: [facility]-fall R knee pain Time Seen by Provider: 05/03/24 15:01 Source: patient, RN notes reviewed Mode of arrival: ambulatory Limitations: no limitations - History of Present Illness Initial Comments: This is a 69-year-old female with history of right TKR and DM complaining of right knee pain following a trip and fall at work at 1 PM today. Patient states she struck the right outer aspect of her with some associated pain (2 out of 10). Patient denies striking her head, headache or neck pain. Patient states she also requires a drug screen for work. MD Complaint: knee injury Onset/Timin -: hour(s) Injury: Knee: Right Type of Injury: blunt Place: work Severity scale (1-10): 2 Context: fall Associated Symptoms: numbness - Related Data Home Medications Medication Instructions Recorded Confirmed Oxybutynin Chloride 5 mg PO BID 09/30/14 11/26/20 Simvastatin [Zocor] 40 mg PO W/SUPPER 10/25/16 11/26/20 Metoprolol Tartrate [Lopressor] 25 mg PO BID 09/14/17 11/26/20 Omeprazole 20 mg PO BID PRN 06/04/19 11/26/20 Ibuprofen [Motrin] 800 mg PO DIRECTED PRN 11/26/20 11/26/20 Magnesium 500 mg PO DAILY 11/26/20 11/26/20 metFORMIN HCL [Glucophage] 500 mg PO BID 11/26/20 11/26/20 Previous Rx's Medication Instructions Recorded traMADol HCl [Ultram] 50 mg PO Q6H PRN #12 tab 06/06/19 Aspirin [Adult Low Dose Aspirin EC] 81 mg PO BID #60 tablet. 12/02/20 Docusate [Colace] 100 mg PO DAILY #30 capsule 12/02/20 HYDROcodone/APAP 7.5-325MG [[place] 1 each PO Q6HR PRN #28 tab 12/02/20 7.5] ondansetron HCL [Zofran] 8 mg PO Q12HR #30 tab 12/02/20 Allergies Allergy/AdvReac Type Severity Reaction Status Date / Time codeine AdvReac Nausea & Verified 05/03/24 15:06 Vomiting Review of Systems ROS Statement: Those systems with pertinent positive or pertinent negative responses have been documented in the HPI. ROS Other: All systems not noted in ROS Statement are negative. 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 History of Any Multi-Drug Resistant Organisms: None Reported Past Surgical History: Cholecystectomy, Heart Catheterization, Hernia Repair, Orthopedic Surgery, Tubal Ligation Additional Past Surgical History / Comment(s): , rt shoulder rotator cuff, left foot surgery, angel luis knee arthroscopy Past Anesthesia/Blood Transfusion Reactions: Previous Problems w/ Anesthesia, Motion Sickness Additional Past Anesthesia/Blood Transfusion Reaction / Comment(s): " TAKES LONGER WAKING UP Past Psychological History: No Psychological Hx Reported Smoking Status: Former smoker Past Alcohol Use History: None Reported Past Drug Use History: None Reported - Past Family History Father Family Medical History: Diabetes Mellitus, Hypertension Brother(s) Family Medical History: Cancer Mother Family Medical History: CVA/TIA, Diabetes Mellitus, Hypertension Additional Family Medical History / Comment(s): Triple bypass, brain aneurysym. General Exam Limitations: no limitations General appearance: alert, in no apparent distress Head exam: Present: atraumatic, normocephalic, normal inspection Eye exam: Present: normal appearance, PERRL, EOMI. Absent: scleral icterus, conjunctival injection, periorbital swelling ENT exam: Present: normal exam, mucous membranes moist Neck exam: Present: normal inspection. Absent: tenderness, meningismus, lymphadenopathy Respiratory exam: Present: normal lung sounds bilaterally. Absent: respiratory distress, wheezes, rales, rhonchi, stridor Cardiovascular Exam: Present: regular rate, normal rhythm, normal heart sounds. Absent: systolic murmur, diastolic murmur, rubs, gallop, clicks GI/Abdominal exam: Present: soft, normal bowel sounds. Absent: distended, tenderness, guarding, rebound, rigid Extremities exam: Present: full ROM, tenderness (Positive right lateral and inferior tenderness with no obvious ecchymosis, edema, crepitus, deformity. R ight distal lower extremity neurovascular intact, dorsalis pedis pulse +2), normal capillary refill. Absent: pedal edema, joint swelling, calf tenderness Back exam: Present: normal inspection Neurological exam: Present: alert, oriented X3, CN II-XII intact Psychiatric exam: Present: normal affect, normal mood Skin exam: Present: warm, dry, intact, normal color. Absent: rash Course Vital Signs 05/03/24 15:06 Temperature 97.5 F L Pulse Rate 71 Respiratory 18 Rate Blood Pressure 152/76 O2 Sat by Pulse 97 Oximetry Medical Decision Making - Medical Decision Making Was pt. sent in by a medical professional or institution (, SHYAM, TRIM SETTER, urgent care, hospital, or intermediate...) When possible be specific @ -No Did you speak to anyone other than the patient for history (EMS, parent, family, police, friend...)? What history was obtained from this source @ -No Did you review nursing and triage notes (agree or disagree)? Why? @ -I reviewed and agree with nursing and triage notes Were old charts reviewed (outside hosp., previous admission, EMS record, old EKG, old radiological studies, urgent care reports/EKG's, intermediate records)? Report findings @ -No old charts were reviewed Differential Diagnosis (chest pain, altered mental status, abdominal pain women, abdominal pain men, vaginal bleeding, weakness, fever, dyspnea, syncope, headache, dizziness, GI bleed, back pain, seizure, CVA, palpatations, mental health, musculoskeletal)? @ -Not applicable EKG interpreted by me (3pts min.). @ -Not done X-rays interpreted by me (1pt min.). @ -Right knee x-ray revealed no fractures, dislocations or foreign body. CT interpreted by me (1pt min.). @ -None done U/S interpreted by me (1pt. min.). @ -None done What testing was considered but not performed or refused? (CT, X-rays, U/S, labs)? Why? @ -None What meds were considered but not given or refused? Why? @ -None Did you discuss the management of the patient with other professionals (professionals i.e. SHYAM Yin, TRIM SETTER, lab, RT, psych nurse, older adult social work specialist, dramatic coach, teacher, product safety officer, classification case manager)? Give summary @ -No Was smoking cessation discussed for >3mins.? @ -No Was critical care preformed (if so, how long)? @ -No Were there social determinants of health that impacted care today? How? (Homelessness, low income, unemployed, alcoholism, drug addiction, transportation, low edu. Level, literacy, decrease access to med. care, detention, rehab)? @ -No Was there de-escalation of care discussed even if they declined (Discuss DNR or withdrawal of care, Hospice)? DNR status @ -No What co-morbidities impacted this encounter? (DM, HTN, Smoking, COPD, CAD, Cancer, CVA, ARF, Chemo, Hep., AIDS, mental health diagnosis, sleep apnea, morbid obesity)? @ -None Was patient admitted / discharged? Hospital course, mention meds given and route, prescriptions, significant lab abnormalities, going to OR and other pertinent info. @ -Discharge. Right knee x-ray was unremarkable and drug screening was performed. Paperwork required by patient's workplace was completed and patient was discharged. Advised RICE and cold compress Undiagnosed new problem with uncertain prognosis? @ -No Drug Therapy requiring intensive monitoring for toxicity (Heparin, Nitro, Insulin, Cardizem)? @ -No Were any procedures done? @ -No Diagnosis/symptom? @ -Knee contusion Acute, or Chronic, or Acute on Chronic? @ -Acute Uncomplicated (without systemic symptoms) or Complicated (systemic symptoms)? @ -Uncomplicated Side effects of treatment? @ -No Exacerbation, Progression, or Severe Exacerbation? @ -No Poses a threat to life or bodily function? How? (Chest pain, [place], [place], pneumonia, PE, COPD, DKA, ARF, appy, cholecystitis, CVA, Diverticulitis, Homicidal, Suicidal, threat to staff... and all critical care pts) @ -No Disposition Clinical Impression: Knee contusion Disposition: HOME SELF-CARE Condition: Good Instructions (If sedation given, give patient instructions): Knee Pain (ED) Is patient prescribed a controlled substance at d/c from ED?: No Referrals: Becky Somers MD [Primary Care Provider] - 1-2 days Time of Disposition: 16:23
== END 2024-05-03 16:15 | disposition home or self-care (01) ==
LOC: EC 14:47
DX: S80.01XA Contusion of right knee, initial encounter (principal); Z88.5 Allergy status to narcotic agent; Z87.891 Personal history of nicotine dependence; W01.0XXA Fall on same level from slipping, tripping and stumbling without subsequent striking against object, initial encounter
CPT/HCPCS: 99283

== ENCOUNTER → 2024-05-20 | Outpatient (CLI) | payer BC, MEDICARE ==
[2024-05-20 15:53] LABS: Basophils # (A) 0.05 X 10*3/uL (0.00-0.10); Basophils % (A) 0.6 %; Eosinophils % (A) 3.3 %; HCT 42.3 % (37.2-46.3); HGB 14.2 g/dL (12.0-15.0); Lymphocytes # (A) 2.41 X 10*3/uL (0.90-5.00); Lymphocytes % (A) 26.8 %; MCH 30.8 pg (27.0-32.0); MCHC 33.6 g/dL (32.0-37.0); MCV 91.8 FL (80.0-97.0); Mean Platelet Volume 10.5 FL (9.5-12.2); Monocytes # (A) 0.73 X 10*3/uL (0.20-1.00); Monocytes % (A) 8.1 %; NRBC Per 100 WBC 0 X 10*3/uL (0.00-0.01); Neutrophils # (A) 5.46 X 10*3/uL (1.80-7.70); Neutrophils % (A) 60.9 %; Platelet Count 326 X 10*3/uL (140-440); RBC 4.61 X 10*6/uL (4.10-5.20); RDW 11.9 % (11.5-14.5); WBC 8.98 X 10*3/uL (4.50-10.00)
[2024-05-20 16:30] LABS: ALT 15 U/L (8-44); AST 16 U/L (13-35); Albumin 3.8 g/dL (3.8-4.9); Albumin/Globulin Ratio 1.12 Ratio (1.60-3.17); Alkaline Phosphatase 132 U/L (41-126); BUN/Creat Ratio 20.14 Ratio (12.00-20.00); Blood Urea Nitrogen 14.1 mg/dL (9.0-27.0); Calcium 9.5 mg/dL (8.7-10.3); Chloride 104 mmol/L (96-109); Chol/HDL Ratio 4.55 Ratio; Globulin 3.4 g/dL (1.6-3.3); Glucose 214 mg/dL (70-110); LDL Cholesterol,Calculated 153.2 mg/dL (0.0-131.0); Potassium 5.1 mmol/L (3.5-5.5); Sodium 141 mmol/L (135-145); Total Bilirubin 0.6 mg/dL (0.3-1.2); Total Protein 7.2 g/dL (6.2-8.2)
[2024-05-20 19:19] LABS: Microalbumin Creatinine Ratio <14 mg/g Cr (0-30); Urine Creatinine 87.6 mg/dL (28.0-217.0)
== END | disposition home or self-care (01) ==
LOC: LABWHC1 09:19
PROVIDERS: ATTEND Nurse Practitioner Family
DX: Z00.00 Encounter for general adult medical examination without abnormal findings (principal); E11.40 Type 2 diabetes mellitus with diabetic neuropathy, unspecified; E11.22 Type 2 diabetes mellitus with diabetic chronic kidney disease; E78.5 Hyperlipidemia, unspecified; N18.9 Chronic kidney disease, unspecified; E66.9 Obesity, unspecified
CPT/HCPCS: 36415; 80053; 80061; 82043; 82306; 82570; 82607; 82746; 83036; 84443; 85025